=== PATIENT | female | born 1945 | race Caucasian/White ===

== ENCOUNTER 2016-02-26 22:13 | Inpatient (IN) | payer OTHER, MEDICARE ==
[~2016-02-26] VITALS: Ht 167.6 cm; Wt 68.9 kg
[~2016-02-26 22:13] MED LIST: ANTIVERT 12.512.5 MG PO; ASPIRIN EC81 M1 PO; CALCIUM 600 +1 EA12 PO; ESTRING0.0075 MG/ VG; GLUCOSAMINE &1 EACH PO; KRILL OIL500 MG PO; LEVOTHYROXINE88 MCG PO; LISINOPRIL40 M1 PO; MAGNESIUM CITR100 M1 PO; MAGNESIUM200 MG PO; MULTIPLE VITAM1 EAC2 PO; NORVASC5 M1 PO; PROBIOTIC FORM1 EACH PO; TUMERIC PO; VITAMIN D32000 I1 PO; VITAMIN D32000 UNI1 PO
[2016-02-26] MEDS ORDERED: ESTRING1 EACH VG (22:54)
[2016-02-26] MEDS ORDERED: TURMERIC500 M1 PO (22:55)
--- NOTE | 2016-02-26 23:23 | ED CARDIAC/CP/PALPITATIONS ---
History of Present Illness General Chief Complaint: Upper Respiratory Sx/Fever Stated Complaint: URI SYMPTOMS AND HEART RACING Source: patient, old records Exam Limitations: no limitations Vital Signs & Intake/Output Vital Signs & Intake/Output ED Intake and Output 02/28 0000 02/27 1200 Intake Total 60 Output Total Balance 60 Intake, Oral 60 Allergies Coded Allergies: NO KNOWN ALLERGIES (01/07/15) Reconcile Medications Amlodipine (Norvasc 5MG Tab) 5 MG TABLET 1 TAB PO DAILY BP (Reported) Aspirin (Ecotrin) 81 MG TABLET.DR 2 TAB PO DAILY HEART HEALTH (Reported) CALCIUM CARBONATE/VITAMIN D3 (Calcium 600 + Vit D Tablet) 600 MG/400 IU TAB 2 TAB PO DAILY SUPPLEMENT (Reported) Cholecalciferol (Vitamin D3) 1,000 IU TAB 2 TAB PO QPM SUPPLEMENT (Reported) Chondroitin Sulf/Glucosamine (Glucosamine & Chondroitin) 1 CAP CAP 2 CAP PO DAILY SUPPLEMENT (Reported) Estradiol (Estring) 7.5 MCG/24 HOUR VAG.RING 1 EACH VG Q3M HRT (Reported) Krill Oil ([employer] Krill Oil) (Unknown Strength) SGL (Unknown Dose) PO QPM SUPPLEMENT (Reported) Lactobacillus Acidophilus (Probiotic Formula Capsule) 10B CELL CAPSULE 1 CAP PO QPM SUPPLEMENT (Reported) Levothyroxine Sodium 0.088 MG TAB 1 TAB PO DAILY AC THYROID (Reported) Lisinopril 40 MG TABLET 1 TAB PO DAILY BP (Reported) Magnesium (Magnesium Citrate) 100 MG TAB 800 MG PO DAILY SUPPLEMENT (Reported ) Multivitamin (Multiple Vitamins) 1 EACH TABLET 2 TAB PO QPM SUPPLEMENT ( Reported) [TUMERIC] (Unknown Strength) (Unknown Dose) PO DAILY SUPPLEMENT (Reported) Turmeric Root Extract (Turmeric) (Unknown Strength) CAPSULE (Unknown Dose) PO QPM SUPPLEMENT (Reported) Triage Note: TRIAGE; PT TO ED WITH URI SYMPTOMS SINCE THURSDAY. STATES TODAY SHE DEVELOPED A COUGH. USED A COUGH DROP AND EARLIER WAS WATCHING TV GETTING READY TO GO TO BED AND FELT LIKE HER HEART WAS RACING. PT STATES SHE HAS A HX OF HYPOTHROIDSIM AND HTN, DENIES TAKING ANY COLD MEDICINE. TAKEN TO EKG [facility]. Triage Nurses Notes Reviewed? yes Onset: Abrupt Duration: hour(s):, constant, continues in ED Activities at Onset: rest HPI: Patient presents for evaluation of an irregular and rapid heartbeat that began earlier this evening. She states she has had some mild cold symptoms including fever since Thursday. She has had chest pain only with coughing. Earlier this evening however she states she had an onset of a rapid irregular heartbeat. She has had intermittent episodes of palpitations in the past that of spontaneously resolved. She has never required care for these episodes. Past History Travel History Traveled to [place] past 21 day No Medical History Any Pertinent Medical History? see below for history Cardiovascular: hypertension Endocrine: hypothyroidism Cancer(s): basal cell carcinoma Surgical History Surgical History: non-contributory Psychosocial History What is your primary language Botswanan Tobacco Use: Never used Family History Hx Contributory? No Review of Systems Review of Systems Constitutional: Reports: no symptoms. EENTM: Reports: no symptoms. Respiratory: Reports: no symptoms. Cardiovascular: Reports: see HPI. GI: Reports: no symptoms. Genitourinary: Reports: no symptoms. Musculoskeletal: Reports: no symptoms. Skin: Reports: no symptoms. Neurological/Psychological: Reports: no symptoms. Hematologic/Endocrine: Reports: no symptoms. Immunologic/Allergic: Reports: no symptoms. All Other Systems: Reviewed and Negative Physical Exam Physical Exam Cardiovascular: SEE BELOW Comments: Gen.: Well-nourished, well-developed, no acute respiratory distress. Head: Normocephalic, atraumatic. Eyes: Normal inspection bilaterally Ears: Normal inspection bilaterally Nose: Normal inspection Throat/mouth : Moist mucosa Neck: Supple, full range of motion, no goiter Heart: IRRegular rate and rhythm, no murmurs rubs or gallops Lungs: Clear to auscultation bilaterally with normal air entry Chest: Nontender Back: Normal range of motion Abdomen: Soft, nontender, nondistended, normal bowel sounds Extremities: Normal range of motion grossly, equal radial pulses, no cyanosis clubbing or edema Neurologic: Cranial nerves grossly intact, speech is clear Skin: warm and dry Psychiatric: Calm, cooperative, no apparent delusions or hallucinations Core Measures ACS in differential dx? No Severe Sepsis Present: No Septic Shock Present: No Progress Differential Diagnosis: AMI, atrial fibrillation, unstable angina, ELECTROLYTE ABNORMALITY, HYPER THYROIDISM Plan of Care: Orders Procedure Date/time Status Telemetry/Top Hat Body Maker 02/25 2353 Active THYROID STIMULATING HORMONE 02/25 2317 Complete TROPONIN LEVEL 02/25 2317 Complete T3 UPTAKE (THYROXINE BIND CAP) 02/25 2317 Complete THYROXINE 02/25 2317 Complete PARTIAL THROMBOPLASTIN TIME 02/25 2317 Complete PROTHROMBIN TIME 02/25 2317 Complete MAGNESIUM 02/25 2317 Complete CBC WITHOUT DIFFERENTIAL 02/25 2317 Complete BASIC METABOLIC PANEL 02/25 2317 Complete EKG 02/25 2218 Active Current Medications Sig/Tsella Start time Last Medication Dose Stop Time Status Admin Sodium Chloride 500 ML BOLUS ONE 02/26 0215 UNVr (Normal Saline 0.9%) 02/264 Diltiazem HCl 125 MG Q12H 02/26 020 UNVr (Cardizem DRIP) Dextrose/Water 100 ML (D5W) Laboratory Tests 02/26/162331: Anion Gap 14, Estimated GFR > 60, BUN/Creatinine Ratio 32.0 H, Glucose 105 H, Calcium 10.9 H, Magnesium 1.9, Troponin I 0.08, TSH 2.340, Thyroxine (T4) 11.6 H, Thyroxine Binding Indx 31.5, PT 12.9 H, INR 1.23 H, APTT 30, CBC w Diff NO MAN DIFF REQ, RBC 4.78, MCV 92.2, MCH 30.8, RDW 13.3, MPV 10.2, Gran % 48.9, Lymphocytes % 27.5, Monocytes % 8.8, Eosinophils % 14.4 H, Basophils % 0.4, Absolute Granulocytes 3.0, Absolute Lymphocytes 1.7, Absolute Monocytes 0.5, Absolute Eosinophils 0.9, Absolute Basophils 0, PUBS MCHC 33.4 Diagnostic Imaging: Discussed w/RAD: Radiology Read. CXR Impression: PATIENT: RYLIE ADHIKARI PRESENT AGE: 70 PATIENT ACCOUNT NO: [id number] : 44 LOCATION: [facility] ORDERING PHYSICIAN: TOBIN GONZÁLES MD SERVICE DATE: 02/26/16 EXAM TYPE: RAD - XRY-PORTABLE CHEST XRAY EXAMINATION: XR PORTABLE CHEST CLINICAL INFORMATION: Atrial fibrillation. COMPARISON: None. TECHNIQUE: Portable view of the chest was obtained. 11:24 PM FINDINGS: No significant abnormality is noted involving the heart, lungs, mediastinum, bony thorax or soft tissues. IMPRESSION: No acute change of chest. DICTATED BY: JAIMIE CHEATHAM MD DATE/TIME DICTATED:02/26/162341 CONTRACTS ADMINISTRATOR:SARAHI DATE/TIME TRANSCRIBED:02/26/162341 CONFIDENTIAL, DO NOT COPY WITHOUT APPROPRIATE AUTHORIZATION. <Electronically signed in Other Vendor System> SIGNED BY: JAIMIE CHEATHAM MD 02/26/16 4612 Initial ED EKG: rate (138), RAPID ATRIAL FIBRILLATION/FLUTTER Prior EKG: changed (NSR ON PRIOR) Rhythm Strip: atrial fibrillation, atrial flutter Comments: 02/26/2016 11:53:29 PM I have updated more on her test results. Her heart rate is now in the 70s to 80s with underlying atrial fibrillation and flutter. Patient's case discussed with Dr. Benitez. He feels the patient does not require anticoagulation at this point given the short duration of her symptoms. Departure Departure Disposition: STILL A PATIENT Condition: Stable Clinical Impression Primary Impression: Atrial fibrillation and flutter Referrals: NEIL BENÍTEZ,ANGELLA Butterfield (PCP/Family) Departure Forms: Customer Survey General Discharge Information Admission Note Spoke With: PB BENITEZ MD Documentation of Exam: Documentation of any treatments & extenuating circumstances including Concerns Regarding Discharge (functional status, medication knowledge or non-compliance, living conditions, etc.) that warrant an admission rather than observation: Patient is experiencing a persistent case of atrial fibrillation/flutter. She denies any prior history of the same. 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 Her atrial fibrillation places her at high risk of rapid ventricular response with associated hypotension and chest pain. Atrial fibrillation also places the patient at high risk of cardio embolism with resulting CVA. He now requires continuous cardiac monitoring and an IV Cardizem drip to control heart rate. She should also have serial troponin determinations for the possibility of cardiac injury. Rate controlling oral medications and anticoagulation might be necessary if patient does not convert within the first 24 hours of symptom onset. I feel the patient will require a multiple day hospitalization. Critical Care Note Critical Care Note Critical Care Time: 30-74 min Critical Care Note Critical Care Note Critical Care Time: 30-74 min
--- NOTE | 2016-02-26 23:46 | RADIOLOGY REPORT ---
EXAMINATION: XR PORTABLE CHEST CLINICAL INFORMATION: Atrial fibrillation. COMPARISON: None. TECHNIQUE: Portable view of the chest was obtained. 11:24 PM FINDINGS: No significant abnormality is noted involving the heart, lungs, mediastinum, bony thorax or soft tissues. IMPRESSION: No acute change of chest.
[2016-02-26 23:49] LABS: PT 12.9 SEC (9.4-12.5); PTT 30 SEC (25-37)
[2016-02-26 23:51] LABS: ABSOLUTE BASOPHIL COUNT 0 /CUMM (0.0-0.2); ABSOLUTE EOSINOPHIL COUNT 0.9 /CUMM (0.0-0.7); ABSOLUTE LYMPH COUNT 1.7 /CUMM (1.2-3.4); ABSOLUTE MONOCYTE COUNT 0.5 /CUMM (0.10-0.60); BASOPHIL % 0.4 % (0.0-2.0); EOSINOPHIL % 14.4 % (0-5); GRANULOCYTE % 48.9 % (42.2-75.2); MEAN CORPUSCULAR HGB 30.8 PG (27.0-31.0); MEAN CORPUSCULAR HGB CONC 33.4 G/DL (33.0-37.0); MEAN CORPUSCULAR VOLUME 92.2 FL (81.0-99.0); MEAN PLATELET VOLUME 10.2 FL (7.4-10.4); PLATELET COUNT 180 /CUMM (130-400); RBC DISTRIBUTION WIDTH 13.3 % (11.5-14.5); RED BLOOD CELL CT 4.78 /CUMM (4.20-5.40); WHITE BLOOD CELL COUNT 6.1 /CUMM (4.8-10.8)
--- NOTE | 2016-02-27 03:10 | History & Physical ---
DANIA MONTEIRO 02/27/16 0309: General Information and HPI MD Statement: I have seen and personally examined HARRIETT BOYD and documented this H&P. The patient is a 70 year old F who presented with a patient stated chief complaint of [Irregular heart beats]. Source of Information: patient, old records Exam Limitations: no limitations History of Present Illness: This is 70-year-old female with past medical history of hypertension, hypothyroidism, basal cell carcinoma. Presented to the emergency department with a chief complaint of irregular and rapid heartbeat that started early this evening around 8 PM. Patient stated that she had some previous history of heart racing and she was evaluated by regional vice president surgical sales in 2007 after being referred by her engraver seals and she was a cleared. Patient stated that last Thursday she started to have some cough, associated with nasal congestions and runny nose, sneezing, patient reports sick contact, she stated that it was common cold. She reports some chest pain below the rib and she linked that to the cough, nonradiating, increased with cough decreased with rest. She denies any fever, chills, shortness of breath, chest discomfort, chest tightness, dizziness, lightheaded, abdominal pain, nausea, vomiting, diarrhea, change in vision or hearing, headache, dysuria, hematuria. She also reports a constipation. Patient stated that she was recently started on vitamin D and calcium supplement per her engraver seals she has a follow-up appointment with him.. Emergency department patient found to have rapid atrial fibrillation with a heart rate in the 140s, she received 10 mg of IV Cardizem and was started on Cardizem elliot, Ismael Cook MD cussed the case with Dr. Miramontes advice no anticoagulation for now and he'll see the patient in morning and will decide. Allergies/Medications Allergies: Coded Allergies: NO KNOWN ALLERGIES (01/07/15) Home Med list Amlodipine (Norvasc 5MG Tab) 5 MG TABLET 1 TAB PO DAILY BP (Reported) Aspirin (Ecotrin) 81 MG TABLET.DR 2 TAB PO DAILY HEART HEALTH (Reported) CALCIUM CARBONATE/VITAMIN D3 (Calcium 600 + Vit D Tablet) 600 MG/400 IU TAB 2 TAB PO DAILY SUPPLEMENT (Reported) Cholecalciferol (Vitamin D3) 1,000 IU TAB 2 TAB PO QPM SUPPLEMENT (Reported) Chondroitin Sulf/Glucosamine (Glucosamine & Chondroitin) 1 CAP CAP 2 CAP PO DAILY SUPPLEMENT (Reported) Estradiol (Estring) 7.5 MCG/24 HOUR VAG.RING 1 EACH VG Q3M HRT (Reported) Krill Oil ([employer] Krill Oil) (Unknown Strength) SGL (Unknown Dose) PO QPM SUPPLEMENT (Reported) Lactobacillus Acidophilus (Probiotic Formula Capsule) 10B CELL CAPSULE 1 CAP PO QPM SUPPLEMENT (Reported) Levothyroxine Sodium 0.088 MG TAB 1 TAB PO DAILY AC THYROID (Reported) Lisinopril 40 MG TABLET 1 TAB PO DAILY BP (Reported) Magnesium (Magnesium Citrate) 100 MG TAB 800 MG PO DAILY SUPPLEMENT (Reported ) Multivitamin (Multiple Vitamins) 1 EACH TABLET 2 TAB PO QPM SUPPLEMENT ( Reported) [TUMERIC] (Unknown Strength) (Unknown Dose) PO DAILY SUPPLEMENT (Reported) Turmeric Root Extract (Turmeric) (Unknown Strength) CAPSULE (Unknown Dose) PO QPM SUPPLEMENT (Reported) Past History Travel History Traveled to [place] past 21 day No Medical History Cardiovascular: hypertension Endocrine: hypothyroidism Cancer(s): basal cell carcinoma Surgical History Surgical History: non-contributory Past Family/Social History Family History Relations & Conditions if any FATHER (Heart attack at 64). . MOTHER (Dementia). . Psychosocial History Smoking Status: Never Smoked ETOH Use: wine daily Functional Ability ADLs Independent: dressing, eating, toileting, bathing. Ambulation: independent IADLs Independent: shopping, housework, finances, food prep, telephone, transportation , medication admin. Review of Systems Review of Systems Constitutional: Reports: see HPI. Cardiovascular: Reports: see HPI. Respiratory: Reports: see HPI. GI: Reports: see HPI. Genitourinary: Reports: see HPI. Exam & Diagnostic Data Last 24 Hrs of Vital Signs/I&O Vital Signs Date Time Temp Pulse Resp B/P Pulse O2 O2 Flow FiO2 Ox Delivery Rate 02/26 0300 134 159/87 96 Room Air 02/26 0219 97.9 133 18 146/84 98 Room Air 02/25 2346 140 18 140/83 02/25 2218 97.6 122 18 122/88 97 Room Air Intake & Output 02/26 0800 02/26 0000 02/25 1600 Intake Total 0 Output Total Balance 0 Intake, Oral 0 Physical Exam General Appearance Alert, Oriented X3, Cooperative HEENT PERRLA, EOMI Neck Supple Cardiovascular Normal S1, Normal S2, irregular irregular, tachycardia Lungs Clear to Auscultation, Normal Air Movement Abdomen Normal Bowel Sounds, Soft, No Tenderness Extremities No Cyanosis, No Edema Last 24 Hrs of Labs/Richy: Laboratory Tests 02/26/16 2332: Anion Gap 14, Estimated GFR > 60, BUN/Creatinine Ratio 32.0 H, Glucose 105 H, Calcium 10.9 H, Magnesium 1.9, Troponin I 0.08, TSH 2.340, Thyroxine (T4) 11.6 H, Thyroxine Binding Indx 31.5, PT 12.9 H, INR 1.23 H, APTT 30, CBC w Diff NO MAN DIFF REQ, RBC 4.78, MCV 92.2, MCH 30.8, RDW 13.3, MPV 10.2, Gran % 48.9, Lymphocytes % 27.5, Monocytes % 8.8, Eosinophils % 14.4 H, Basophils % 0.4, Absolute Granulocytes 3.0, Absolute Lymphocytes 1.7, Absolute Monocytes 0.5, Absolute Eosinophils 0.9, Absolute Basophils 0, PUBS MCHC 33.4 02/26/16 2318: Hemoglobin A1c Pending Diagnostic Data EKG Results Atrial fibrillation, heart rate 130s, CXR Results EXAM TYPE: RAD - XRY-PORTABLE CHEST XRAY EXAMINATION: XR PORTABLE CHEST CLINICAL INFORMATION: Atrial fibrillation. COMPARISON: None. TECHNIQUE: Portable view of the chest was obtained. 11:24 PM FINDINGS: No significant abnormality is noted involving the heart, lungs, mediastinum, bony thorax or soft tissues. IMPRESSION: No acute change of chest. Assessment/Plan Assessment: This is 70-year-old female with past medical history of hypertension, hypothyroidism, basal cell carcinoma. Presented to the emergency department with a chief complaint of irregular and rapid heartbeat that started early this evening around 8 PM. Problem list: -Newly diagnosed rapid atrial fibrillation that could be due to medication versus electrolyte abnormality versus infection versus thyroid issues. -Nasal congestion, cough, runny nose most likely due to cold. -Rule out acute coronary syndrome. -Hypercalemia [id number] =3 Plan: -Admit patient to telemetry floor -Vitals every shift, I&Os -Serial troponin and EKG -IV Cardizem drip, IV fluid hydration D5 half-normal saline at 125 mL/h -We'll hold off anticoagulation as recommended by regional vice president surgical sales for now. -Check TSH, free T4, hemoglobin A1c, magnesium. -Echocardiogram in a.m. cardiology consultation. -Repeat CBC and basic electrolytes, lipid panel -Continue home medication, hold vitamin D and calcium -Heart healthy diet -Pain pathway -DVT prophylaxis: subcutaneous Lovenox -Full code As Ranked By This Provider Problem List: 1. Atrial fibrillation and flutter Core Measures/Miscellaneous Acute Coronary Syndrome ACS Diagnosis: No Cerebrovascular Accident CVA/TIA Diagnosis: No Congestive Heart Failure CHF Diagnosis: No Venous Thromboembolism VTE Risk Factors: Acute medical illness, Age > 40, Estrogen VTE Prophylaxis Ordered Inpt: Mech & Pharm No Mech VTE prophylaxis d/t: No contraindications No VTE Pharm Prophylaxis d/t: No contraindications VTE Diagnosis: No VTE Type: NONE VTE Confirmed by (Test): NONE Severe Sepsis Severe Sepsis Present: No Septic Shock Septic Shock Present: No Miscellaneous Documentation Attending Case Discussed With: Dr. Miramontes Primary Care Physician: ANGELLA TREJO MD Patient sees these Specialists Lab Specialist Level of Patient Care: Telemetry EMMANUEL BENÍTEZ,PB Cervantes 02/27/16 1043: Attending MD Review Statement Attending Statement Attending MD Statement: examined this patient, discuss w/resident/PA/DRAINMAN, agreed w/resident/PA/DRAINMAN, discussed with family, reviewed EMR data (avail), discussed with nursing, discussed with case mgmt, reviewed images, amended to note Attending Assessment/Plan: Mrs. Harriett Boyd is a 70-year-old female with a past medical of hypertension, hypothyroidism on thyroid replacement, and previous palpitations who presented from home to the ED following the sudden onset of palpitations at around 8 PM last evening (02/26/2016) and was found to be in atrial fibrillation with a rapid ventricular response. She has been suffering with upper respiratory infection symptoms since Thursday ( 02/22/2016) with a non-productive cough, sneezing, as well as, body aches and pains. She denies any fever or chills. She took no specific medications for these complaints. In the ED she was given IV diltiazem (10 mg times one) followed by an IV diltiazem drip (10 mg/hour) and converted back to sinus rhythm without any neurological sequelae. The diltiazem drip was titrated down and ultimately discontinued secondary to bradycardia. She denies any history of coronary, valvular, documented dysrhythmic/conduction disease, or cardiomyopathy. At present she is comfortable and without complaints. She specifically denies any present or previous chest discomfort, shortness of breath, orthopnea, paroxysmal nocturnal dyspnea, lower schreiber edema, dry cough, syncope, near syncope , lightheadedness, dizziness, or claudication. System review: A 14 point system review was obtained and was noncontributory other than as above, except for the fact that she wears glasses and has occasional UTIs. Past medical history: Hypertension, hypothyroidism, previous palpitations, basal cell carcinoma status post resection with Mohs procedure, previous UTIs, previous endometriosis status post laparoscopic surgery in the 1970s. Family history/social history: Never smoked, social EtOH, no illegal drug use. Father succumbed to myocardial infarction at age 64 years. Mother at age 88 years from complications of dementia. Has a sister who developed endocarditis and is status post mechanical valve replacement. Physical examination: Well-developed, well nourished elderly female in no acute distress. Vital signs: See above. HEENT: Normocephalic, atraumatic, EOMI, moist. His membranes. Neck: No JVD, no bruits. Lungs: Clear to auscultation bilaterally. Heart: S1, S2 with no murmur, gallop, or rub appreciated. PMI fifth ICS at MCL. Abdomen: Soft, nontender, positive bowel sounds. Extremities: No cyanosis, clubbing, or edema. Peripheral pulses: Symmetrical and intact. Studies: ECG (02/26/2016) atrial fibrillation with a rapid ventricular response, probable left ventricular hypertrophy with repolarization abnormalities likely rate related note rhythm change when compared to previous tracing (01/07/2015). CXR (02/26/2016) no acute process. Impression: New onset atrial fibrillation in an elderly female who may have had a paroxysm during a previous ED evaluation on 09/25/2014 without follow -up at that time. As this paroxysm of atrial fibrillation was short lived, I do not think, at this juncture, that she needs to be placed on anticoagulation or specific antiarrhythmic therapy. Would replete her potassium, magnesium, and have her engraver seals follow-up with her for her thyroid function and elevated calcium level. Would schedule her for an echocardiogram which can hopefully be performed today. Suspect that the modest bump in her troponin is on the basis of demand ischemia secondary to tachycardia and probable left ventricular hypertrophy secondary to her hypertension, but need to consider the possibility of underlying coronary artery disease, especially in light of the ST depression observed on her presenting ECG. Would also recommend outpatient risk stratification with an imaging stress test given her abnormal electrocardiogram and risk factors for coronary artery disease. Would ambulate and if she remains stable consider discharge later today for further outpatient evaluation/management. Continue DVT prophylaxis for now. Reasonable to check a glycosylated hemoglobin A1c. Further recommendations will follow.
[2016-02-27 06:14] LABS: ABSOLUTE BASOPHIL COUNT 0 /CUMM (0.0-0.2); ABSOLUTE EOSINOPHIL COUNT 0.5 /CUMM (0.0-0.7); ABSOLUTE GRANULOCYTE CT 3.8 /CUMM (1.4-6.5); ABSOLUTE LYMPH COUNT 1.5 /CUMM (1.2-3.4); ABSOLUTE MONOCYTE COUNT 0.5 /CUMM (0.10-0.60); BASOPHIL % 0.2 % (0.0-2.0); EOSINOPHIL % 7.4 % (0-5); GRANULOCYTE % 60.5 % (42.2-75.2); HEMATOCRIT 39.8 % (37-47); MEAN CORPUSCULAR HGB 31.3 PG (27.0-31.0); MEAN CORPUSCULAR HGB CONC 34.3 G/DL (33.0-37.0); MEAN PLATELET VOLUME 9.3 FL (7.4-10.4); PLATELET COUNT 200 /CUMM (130-400); RBC DISTRIBUTION WIDTH 13.2 % (11.5-14.5); RED BLOOD CELL CT 4.38 /CUMM (4.20-5.40); WHITE BLOOD CELL COUNT 6.3 /CUMM (4.8-10.8)
--- NOTE | 2016-02-27 11:14 | PN- Housestaff ---
Subjective Follow-up For: New onset atrial fibrillation Subjective: Patient was seen and examined this morning, no acute distress. She denied any chest pain, palpitation, shortness of breath, dizziness, headache, blurred vision. Overnight events reported by the patient or the nurse. Vital signs are stable with heart rate 66 and regular, temperature 129/72, respiratory rate 16 with room air saturation 95%, temperature 97.6 Review of Systems Constitutional: Denies: no symptoms. Objective Last 24 Hrs of Vital Signs/I&O Vital Signs Date Time Temp Pulse Resp B/P Pulse O2 O2 Flow FiO2 Ox Delivery Rate 02/26 1541 97.6 66 16 128/72 95 Room Air 02/26 1435 Room Air 02/26 1421 98.3 65 18 158/80 96 Room Air 02/26 1324 98.1 76 18 160/69 99 Room Air 02/26 1049 97.9 54 16 110/57 02/26 0617 54 110/57 16 02/26 0525 54 16 156/61 95 Room Air 02/26 0300 134 159/87 96 Room Air 02/26 0219 97.9 133 18 146/84 98 Room Air 02/25 2346 140 18 140/83 02/25 2218 97.6 122 18 122/88 97 Room Air Intake & Output 02/26 1600 02/26 0800 02/26 0000 Intake Total 375 0 Output Total Balance 375 0 Intake, IV 135 Intake, Oral 240 0 Number 1 Bowel Movements Patient 68.946 kg Weight Physical Exam General Appearance: Alert, Oriented X3, Cooperative, No Acute Distress Skin: No Rashes, No Breakdown, No Significant Lesion HEENT: Atraumatic, PERRLA, EOMI, Mucous Membr. moist/pink Neck: Supple, No JVD Cardiovascular: Regular Rate, Normal S1, Normal S2, No Murmurs Lungs: Clear to Auscultation, Normal Air Movement Abdomen: Normal Bowel Sounds, Soft, No Tenderness Neurological: Normal Gait, Normal Speech, Strength at 5/5 X4 Ext, Normal Tone, Sensation Intact, Cranial Nerves 3-12 NL, Reflexes 2+ Extremities: No Clubbing, No Cyanosis, No Edema, Normal Pulses Assessment/Plan Assessment: This is 70-year-old female with past medical history of hypertension, hypothyroidism, basal cell carcinoma. She was admitted overnight with chief complaint of irregular rapid heartbeat that started early yesterday evening. 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 Miramontes doesn't recommend starting anticoagulation with heparin given that the patient has no risk factors and the rate is well-controlled -Patient reported recent history of flu with cough, congested nose since Thursday, viral illness could participate in new onset of atrial fibrillation -Patient has history of hypothyroidism, was questioned if she had any recent changes in Synthroid dose or if she got 2 doses by mistake but she denied any of these possibilities. -On admission troponin is 0.08, following troponin 0.12, start to trend down to 0.09. -Lipid profile HDL 83, HDL 69, triglycerides 52, total cholesterol 162 -Cardiology Dr. Miramontes is on board #Hypertension -Continue home medication amlodipine and lisnopril #Hypothyroidism -Continue Synthroid 88 g by mouth daily -TSH 2.34, free T4 1.31 -Discontinue vitamin D with calcium, patient has on admission hypercalcemia 10.9 DVT prophylaxis Lovenox Diet heart healthy diet Code full Problem List: 1. Atrial fibrillation and flutter Pain Ratin Pain Location: n/a Pain Goal: Remain pain free Pain Plan: see mediaction Tomorrow's Labs & Rationales: cbc, cmp
--- NOTE | 2016-02-27 13:30 | Event Note ---
Event Note Event Note: Situation: * resolution of tachyarrhythmia Brief: * The Cardizem drip was started some time after 0400hrs @ 10mg/hr for new onset Afib w/ RVR * On assessement of her rhythm on ED monitor around 0500hrs she was bradycardic into the 40's. SBP at the time 150's. PT was asymptomatic at this time, denies any palpitations, CP, dizziness, GARCIA, difficulty speaking or new numbness/ weakness in any extremitis * I titrated had the ED staff titrate the drip down by 2.5mg intervals while watching for rrecurrence of RVR and ordered a repeat EKG * Of note, the patient did mention that her baseline HR is in the 40's while at rest A/P: * Follow up EKG to assess rhythm (Afib vs NSR) * Will update Dr Miramontes on repeat troponin levels and discuss the need for anticoagulation
--- NOTE | 2016-02-27 13:57 | Patient Discharge Instructions ---
Discharge Instructions General Discharge Information You were seen/treated for: - PAROXYSMAL ATRIAL FIBRILLATION Watch for these problems: RAPID HEART BEAT CHEST PAIN SHORTNESS OF BREATHE Special Instructions: ENSURE FOLLOW UP APPOINTMENT WITH DR. PB BENITEZ (CARDIOLOGY) Diet Recommended Diet: Regular Activity Activity Self Limited: Yes Acute Coronary Syndrome Inclusion Criteria At DC or during hospital stay patient has or had the following: ACS DIAGNOSIS No Discharge Core Measures Meds if any: Prescribed or Continued at Discharge Meds if any: NOT Prescribed or Continued at Discharge Comment TACHYCARDIA INDUCED,DEMAND Congestive Heart Failure Inclusion Criteria At DC or during hospital stay patient has or had the following: CHF DIAGNOSIS No Discharge Core Measures Meds if any: Prescribed or Continued at Discharge Meds if any: NOT Prescribed or Continued at Discharge Cerebrovascular accident Inclusion Criteria At DC or during hospital stay patient has or had the following: CVA/TIA Diagnosis No Discharge Core Measures Meds if any: Prescribed or Continued at Discharge Meds if any: NOT Prescribed or Continued at Discharge Venous thromboembolism Inclusion Criteria VTE Diagnosis No VTE Type NONE VTE Confirmed by (Test) NONE Discharge Core Measures - Per Current guidelines, there needs to be overlap - treatment for the first 5 days of Warfarin therapy. - If discharged on Warfarin prior to 5 days of - overlap therapy, the patient will need to be - assessed for post discharge needs including - *Post discharge parental anticoagulation - *Warfarin and/or parental anticoagulation education - *Follow up date to check INR post discharge At least 5 days overlap therapy as Inpatient No Meds if any: Prescribed or Continued at Discharge Note: Overlap Therapy is Warfarin and Anticoagulant Meds if any: NOT Prescribed or Continued at Discharge
[2016-02-27 14:21] VITALS: BP 158/80
[2016-02-27 15:41] VITALS: BP 128/72
[2016-02-28 01:12] VITALS: BP 130/67
[2016-02-28 07:40] LABS: ABSOLUTE BASOPHIL COUNT 0 /CUMM (0.0-0.2); ABSOLUTE EOSINOPHIL COUNT 0.9 /CUMM (0.0-0.7); ABSOLUTE GRANULOCYTE CT 1.6 /CUMM (1.4-6.5); ABSOLUTE MONOCYTE COUNT 0.5 /CUMM (0.10-0.60); BASOPHIL % 0.4 % (0.0-2.0); EOSINOPHIL % 17.4 % (0-5); GRANULOCYTE % 31.6 % (42.2-75.2); HEMATOCRIT 37.4 % (37-47); MEAN CORPUSCULAR HGB 31.3 PG (27.0-31.0); MEAN CORPUSCULAR VOLUME 91.9 FL (81.0-99.0); MEAN PLATELET VOLUME 9.7 FL (7.4-10.4); PLATELET COUNT 173 /CUMM (130-400); RBC DISTRIBUTION WIDTH 13.3 % (11.5-14.5); RED BLOOD CELL CT 4.07 /CUMM (4.20-5.40)
[2016-02-28 08:00] VITALS: BP 122/68
[2016-02-28 09:11] VITALS: BP 140/66
--- NOTE | 2016-02-28 11:06 | PN- Housestaff ---
Subjective Follow-up For: New onset paroxysmal atrial fibrillation Tele-Events Since Last Visit: SR rate 50-60 no events Subjective: patient was seen and examined this mornig, no acute distress, viatls are stable, sinus rythum with rate 50bpm, no complait. on overight events reported by the patient or the nurse. Review of Systems Constitutional: Denies: no symptoms. Objective Last 24 Hrs of Vital Signs/I&O Vital Signs Date Time Temp Pulse Resp B/P Pulse O2 O2 Flow FiO2 Ox Delivery Rate 02/27 0911 140/66 02/27 08 97.5 50 20 122/68 93 Room Air 02/27 0112 97.9 56 20 130/67 94 Intake & Output 02/27 1600 02/27 0800 02/27 0000 Intake Total 60 250 Output Total Balance 60 250 Intake, Oral 60 250 Physical Exam General Appearance: Alert, Oriented X3, Cooperative, No Acute Distress Skin: No Rashes, No Breakdown, No Significant Lesion HEENT: Atraumatic, PERRLA, EOMI, Mucous Membr. moist/pink Neck: Supple, No JVD Cardiovascular: Regular Rate, Normal S1, Normal S2, No Murmurs Lungs: Clear to Auscultation, Normal Air Movement Abdomen: Normal Bowel Sounds, Soft, No Tenderness Neurological: Normal Gait, Normal Speech, Strength at 5/5 X4 Ext, Normal Tone, Sensation Intact, Cranial Nerves 3-12 NL, Reflexes 2+ Extremities: No Clubbing, No Cyanosis, No Edema, Normal Pulses Assessment/Plan Assessment: This is 70-year-old female with past medical history of hypertension, hypothyroidism, basal cell carcinoma. She was admitted overnight with chief complaint of irregular rapid heartbeat. 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 Miramontes doesn't recommend starting anticoagulation with heparin given that the patient has no risk factors and the rate is well-controlled -Patient reported recent history of flu with cough, congested nose since Thursday, viral illness could participate in new onset of atrial fibrillation -Patient has history of hypothyroidism, was questioned if she had any recent changes in Synthroid dose or if she took 2 doses by mistake but she denied any of these possibilities. -On admission troponin is 0.08, following troponin 0.12, start to trend down to 0.09. -Lipid profile HDL 83, HDL 69, triglycerides 52, total cholesterol 162 -Cardiology Dr. Miramontes is on board -Echo was obtaied yesterday -Patient will be discharged today, supposed to be DC since yesterday but had her echo done late yesterday. Discussed the DC plan with the resident who spoke with Dr. Miramontes yesterday about the DC plan. Patiet was given (up to date basic information about atrial fibrilation). #Hypertension -Continue home medication amlodipine and lisnopril #Hypothyroidism -Continue Synthroid 88 g by mouth daily -TSH 2.34, free T4 1.31 -Discontinue vitamin D with calcium, patient has on admission hypercalcemia 10.9 DVT prophylaxis Lovenox Diet heart healthy diet Code full Problem List: 1. AF (paroxysmal atrial fibrillation) 2. Hypertension 3. Hypothyroid Pain Ratin Pain Location: n/a Pain Goal: Remain pain free Pain Plan: as needed Tomorrow's Labs & Rationales: none
--- NOTE | 2016-02-28 11:55 | Discharge Summary ---
Visit Information Visit Dates Admission Date: 02/27/16 Discharge Date: 02/28/16 Hospital Course Course Attending Physician: EMMANUEL BENÍTEZ,PB Cervantes Primary Care Physician: NEIL BENÍTEZ,ANGELLA [facility] Hospital Course: This is 70-year-old female with past medical history of hypertension, hypothyroidism, basal cell carcinoma. She was admitted with chief complaint of irregular rapid heartbeat. 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 Benitez did not recommend starting anticoagulation with heparin given that the patient has no risk factors and the rate is well- controlled -Patient reported recent history of flu with cough, congested nose . Viral illness could participate in new onset of atrial fibrillation -Patient has history of hypothyroidism, was questioned if she had any recent changes in Synthroid dose or if she took 2 doses by mistake but she denied any of these possibilities. -On admission troponin is 0.08, following troponin 0.12, trend down to 0.09. -Lipid profile HDL 83, HDL 69, triglycerides 52, total cholesterol 162 -Echo was obtaied Normal size left ventricle. Borderline to mild concentric left ventricular hypertrophy. Normal left ventricular ejection fraction visually estimated at > 65%. Normal left ventricular diastolic filling pattern for age. Mild right ventricular dilatation. Normal right atrial size. Left atrial size at the upper limits of normal. Mild mitral regurgitation. Mild tricuspid regurgitation. Right ventricular systolic pressure estimated at 32 mmHg. Mild pulmonic regurgitation. #Hypertension -Continue home medication amlodipine 5 mg daily and lisnopril 40 mg daily #Hypothyroidism -Continue Synthroid 88 g by mouth daily -TSH 2.34, free T4 1.31 DVT prophylaxis Lovenox Diet heart healthy diet Code full Allergies: Coded Allergies: NO KNOWN ALLERGIES (03/02/16) Disposition Summary Disposition Principal Diagnosis: New onset of paroxysmal atrial fibrillation Additional Diagnosis: Hypertension Discharge Disposition: home or self care Discharge Instructions General Discharge Information Code Status: Full Code Patient's Diet: heart heathly diet Patient's Activity: as tolerated Follow-Up Instructions/Appts: ENSURE FOLLOW UP APPOINTMENT WITH DR. PB BENITEZ (CARDIOLOGY) Medications at Discharge Discharge Medications: Continue taking these medications: Lisinopril (Lisinopril) 40 MG TABLET 1 Tablet ORAL DAILY Qty = 90 Comments: PER PT Amlodipine (Norvasc 5MG Tab) 5 MG TABLET 1 Tablet ORAL DAILY Qty = 90 Comments: PER PT Levothyroxine Sodium (Levothyroxine Sodium) 0.088 MG TAB 1 Tablet ORAL DAILY BEFORE BREAKFAST Qty = 90 Comments: PER PT Aspirin (Ecotrin) 81 MG TABLET.DR 2 Tablet ORAL DAILY Comments: PER PT TAKES QPM Chondroitin Sulf/Glucosamine (Glucosamine & Chondroitin) 1 CAP CAP 2 Capsule ORAL DAILY Comments: PER PT TAKES QPM [TUMERIC] (Unknown Strength) Unknown Dose ORAL DAILY Comments: PER PT QPM Magnesium (Magnesium Citrate) 100 MG TAB 800 Milligram ORAL DAILY Comments: PER PT TAKES QPM Cholecalciferol (Vitamin D3) 1,000 IU TAB 2 Tablet ORAL Every night Comments: PER PT QPM CALCIUM CARBONATE/VITAMIN D3 (Calcium 600 + Vit D Tablet) 600 MG/400 IU TAB 2 Tablet ORAL DAILY Comments: PER PT QPM Lactobacillus Acidophilus (Probiotic Formula Capsule) 10B CELL CAPSULE 1 Capsule ORAL Every night Comments: PER PT QPM Krill Oil ([employer] Krill Oil) (Unknown Strength) SGL Unknown Dose ORAL Every night Comments: PER PT QPM Multivitamin (Multiple Vitamins) 1 EACH TABLET 2 Tablet ORAL Every night Comments: PER PT Estradiol (Estring) 7.5 MCG/24 HOUR VAG.RING 1 Each VAGINAL Every 3 months Comments: PER PT JAN 2016 Turmeric Root Extract (Turmeric) (Unknown Strength) CAPSULE Unknown Dose ORAL Every night Comments: PER PT Copies To: NEIL BENÍTEZ,ANGELLA [place]; EMMANUEL BENÍTEZ,PB Cervantes
--- NOTE | 2016-02-28 15:28 | ECHOCARDIOGRAM REPORT ---
RYLIE ADHIKARI Age: 70 : 1945 Gender: F Exam Date: 02/27/2016 20:02 Exam Location: [place] Ht (in): 66 Wt (lb): 152 BSA: 1.80 BP: 18 / 72 Ordering Physician: DAVID NG MD Referring Physician: Maurice Miramontes MD Technologist: Melly Donovan [facility] Room Number: 180-02 Indications: AFIB/FLUTTER Rhythm: Sinus Technical Quality: Fair FINDINGS Left Ventricle Normal size left ventricle. Borderline to mild concentric left ventricular hypertrophy. No obvious regional wall motion abnormalities. Normal left ventricular ejection fraction visually estimated at > 65%. Normal left ventricular diastolic filling pattern for age. Right Ventricle Mild right ventricular dilatation. Right Atrium Normal right atrial size. Left Atrium Left atrial size at the upper limits of normal. Mitral Valve Mitral valve mildly thickened. Mild mitral regurgitation. Aortic Valve Trileaflet aortic valve. Mild aortic sclerosis. No aortic valve stenosis or regurgitation. Tricuspid Valve Structurally normal tricuspid valve. Mild tricuspid regurgitation. Right ventricular systolic pressure estimated at 32 mmHg. Pulmonic Valve Pulmonic valve not well visualized. Mild pulmonic regurgitation. Pericardium No pericardial effusion. Great Vessels Normal size aortic root. Normal size inferior vena cava. CONCLUSIONS Normal size left ventricle. Borderline to mild concentric left ventricular hypertrophy. Normal left ventricular ejection fraction visually estimated at > 65%. Normal left ventricular diastolic filling pattern for age. Mild right ventricular dilatation. Normal right atrial size. Left atrial size at the upper limits of normal. Mild mitral regurgitation. Mild tricuspid regurgitation. Right ventricular systolic pressure estimated at 32 mmHg. Mild pulmonic regurgitation. Maurice Miramontes M.D. (Electronically Signed) Final Date: 28 February 2016 15:28 MEASUREMENTS (Male / Female) Normal Values 2D ECHO LV Diastolic Diameter PLAX 4.8 cm 4.2 - 5.9 / 3.9 - 5.3 cm LV Systolic Diameter PLAX 3.0 cm 2.1 - 4.0 cm LV Fractional Shortening PLAX 37.5 % 25 - 46 % LV Ejection Fraction 2D Teich 67.4 % IVS Diastolic Thickness 0.8 cm LVPW Diastolic Thickness 1.0 cm LV Relative Wall Thickness 0.4 RV Internal Dim ED PLAX 3.5 cm 1.9 - 3.8 cm LVOT Diameter 1.9 cm Aortic Root Diameter 2.6 cm LA Systolic Diameter LX 3.9 cm 3.0 - 4.0 / 2.7 - 3.8 cm LA Volume 42.0 cm 18 - 58 / 22 - 52 cm Ascending Aorta Diameter 3.1 cm DOPPLER AV Peak Velocity 136.0 cm/s AV Peak Gradient 7.4 mmHg AV Mean Velocity 101.0 cm/s AV Mean Gradient 4.0 mmHg AV Velocity Time Integral 31.7 cm LVOT Peak Velocity 89.7 cm/s LVOT Peak Gradient 3.2 mmHg LVOT Mean Velocity 54.8 cm/s LVOT Mean Gradient 1.0 mmHg LVOT Velocity Time Integral 20.1 cm LVOT Stroke Volume 57.0 cm AV Area Cont Eq vti 1.8 cm AV Area Cont Eq pk 1.9 cm MV Peak Velocity 66.2 cm/s MV Peak Gradient 1.8 mmHg MV Mean Velocity 44.3 cm/s MV Mean Gradient 1.0 mmHg Mitral E Point Velocity 61.4 cm/s Mitral A Point Velocity 55.5 cm/s Mitral E to A Ratio 1.1 MV PHT Velocity 67.9 cm/s MV Deceleration [place] 192.0 cm/s MV Pressure Half Time 106.1 ms MV Area PHT 2.1 cm MV Deceleration Time 180.0 ms TR Peak Velocity 259.0 cm/s TR Peak Gradient 26.8 mmHg Right Atrial Pressure 5.0 mmHg Pulmonary Artery Systolic Pressu 31.8 mmHg Right Ventricular Systolic Press 31.8 mmHg PV Peak Velocity 78.6 cm/s PV Peak Gradient 2.5 mmHg PV Mean Velocity 49.7 cm/s PV Mean Gradient 1.0 mmHg PV Velocity Time Integral 15.5 cm LV E' Lateral Velocity 7.8 cm/s Mitral E to LV E' Lateral Ratio 7.9 LV E' Septal Velocity 3.9 cm/s Mitral E to LV E' Septal Ratio 15.7
== END 2016-02-28 09:55 | DRG 309 ==
LOC: ENRESERVDT → ENRESERVTM → ERH 22:13 → ERHI 02-27 02:13 → ENPENDDIS 02-27 02:13 → ERHI 02-27 13:42 → 1NO 02-27 13:42 → ERHI 02-27 13:47 → 1NO 02-27 14:11
PROVIDERS: Emergency Medicine; Internal Medicine Hematology & Oncology; Student in an Organized Health Care Education/Training Program; ADMIT Internal Medicine Interventional Cardiology
DX: I48.0 Paroxysmal atrial fibrillation (principal); I24.8 Other forms of acute ischemic heart disease; I48.92 Unspecified atrial flutter; I10 Essential (primary) hypertension; E03.9 Hypothyroidism, unspecified; E83.52 Hypercalcemia; I51.7 Cardiomegaly
CPT/HCPCS: 1NSP; 36415; 82436; 93005; 93010; 93306; 96374; J1650

== ENCOUNTER 2016-03-02 18:58 | Emergency (ER) | payer OTHER, MEDICARE ==
[~2016-03-02] VITALS: Ht 167.6 cm; Wt 68.0 kg
[~2016-03-02 18:58] MED LIST changes: +ESTRING1 EACH VG; +TURMERIC500 M1 PO
--- NOTE | 2016-03-02 19:37 | ED CARDIAC/CP/PALPITATIONS ---
History of Present Illness General Chief Complaint: General Adult Stated Complaint: HEART PALPITATIONS H/X OF AFIB Source: patient, old records Exam Limitations: no limitations Vital Signs & Intake/Output Vital Signs & Intake/Output Vital Signs Date Time Temp Pulse Resp B/P Pulse O2 O2 Flow FiO2 Ox Delivery Rate 03/03 0119 97.9 55 18 169/74 97 Room Air 03/02 2225 98.2 51 18 135/61 98 Room Air 03/02 2013 Room Air 03/02 1909 97.8 67 20 186/93 98 Room Air ED Intake and Output 03/03 0000 03/02 1200 Intake Total Output Total Balance Patient 150 lb Weight Allergies Coded Allergies: NO KNOWN ALLERGIES (03/02/16) Reconcile Medications Amlodipine (Norvasc 5MG Tab) 5 MG TABLET 1 TAB PO DAILY BP (Reported) Aspirin (Ecotrin) 81 MG TABLET.DR 2 TAB PO DAILY HEART HEALTH (Reported) CALCIUM CARBONATE/VITAMIN D3 (Calcium 600 + Vit D Tablet) 600 MG/400 IU TAB 2 TAB PO DAILY SUPPLEMENT (Reported) Cholecalciferol (Vitamin D3) 1,000 IU TAB 2 TAB PO QPM SUPPLEMENT (Reported) Chondroitin Sulf/Glucosamine (Glucosamine & Chondroitin) 1 CAP CAP 2 CAP PO DAILY SUPPLEMENT (Reported) Estradiol (Estring) 7.5 MCG/24 HOUR VAG.RING 1 EACH VG Q3M HRT (Reported) Krill Oil ([employer] Krill Oil) (Unknown Strength) SGL (Unknown Dose) PO QPM SUPPLEMENT (Reported) Lactobacillus Acidophilus (Probiotic Formula Capsule) 10B CELL CAPSULE 1 CAP PO QPM SUPPLEMENT (Reported) Levothyroxine Sodium 0.088 MG TAB 1 TAB PO DAILY AC THYROID (Reported) Lisinopril 40 MG TABLET 1 TAB PO DAILY BP (Reported) Magnesium (Magnesium Citrate) 100 MG TAB 800 MG PO DAILY SUPPLEMENT (Reported ) Multivitamin (Multiple Vitamins) 1 EACH TABLET 2 TAB PO QPM SUPPLEMENT ( Reported) [TUMERIC] (Unknown Strength) (Unknown Dose) PO DAILY SUPPLEMENT (Reported) Turmeric Root Extract (Turmeric) (Unknown Strength) CAPSULE (Unknown Dose) PO QPM SUPPLEMENT (Reported) Triage Note: TRIAGE: PT TO ER C/C "I FELT ALMOST LIGHTHEADED AND EXTREMELY COLD". STATES LAYED DOWN AND CHECKED HER VITAL SIGNS. "I JUST FELT THAT I SHOULD COME HERE." PT B/P WAS 129/67 THIS MORNING AND 160'S/80'S X 3 CHECKS THIS EVENING. DENIES ANY PAIN. STATES HR FELT FAST BUT WAS IN THE 60'S. WAS SEEN HERE ON 02/26 FOR S/S OF RAPID HEARTRATE AND WAS FOUND TO BE IN AFIB. Triage Nurses Notes Reviewed? yes Onset: Abrupt Duration: better, gone now Timing: single episode today Quality/Severity: moderate Radiation: no radiation HPI: Patient is a 70-year-old female with a past medical history of hypertension, hypothyroidism, and basal cell carcinoma who had a recent admission to [facility] on February 2604 04 for concerns of new onset of atrial fibrillation in which patient was given Cardizem initially however per hospital records Dr. Miramontes did not warrant anticoagulation for patient. Patient had echocardiogram after admitted and noted to have ejection fraction 65%. It was noted through hospital records the patient also has been complaining of a week history of upper rest for a complaints Prior to admission Patient was in her normal state of health today and after eating dinner at approximately 1800 she stood up and felt suddenly dizzy and lightheaded and cold and clammy which symptoms had resolved approximately half hour later. Since patient has been asymptomatic however due to recent admission and concerns of atrophic ablation patient wanted to be "checked out". Patient took blood pressure readings and heart rate in which she was noted to be between 65 and 75 bpm and blood pressure was approximately 160/80 Currently patient is asymptomatic and takes her home medications as directed and is compliant. Patient was not prescribed any medications after she was discharged from the emergency room on (PORTILLO ROMAN) Past History Travel History Traveled to [place] past 21 day No Medical History Any Pertinent Medical History? 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 . MOTHER (Dementia). . Hx Contributory? No (PORTILLO ROMAN) Review of Systems Review of Systems Constitutional: Reports: see HPI. EENTM: Reports: no symptoms. Respiratory: Reports: no symptoms. Cardiovascular: Reports: no symptoms. GI: Reports: no symptoms. Genitourinary: Reports: no symptoms. Musculoskeletal: Reports: no symptoms. Skin: Reports: no symptoms. Neurological/Psychological: Reports: no symptoms. Hematologic/Endocrine: Reports: no symptoms. Immunologic/Allergic: Reports: no symptoms. All Other Systems: Reviewed and Negative (PORTILLO ROMAN) Physical Exam Physical Exam General Appearance: well developed/nourished, no apparent distress, alert Cardiovascular: regular rate/rhythm Comments: Well-developed well-nourished person in no acute distress HEENT: Normal EENT exam, extraocular motion intact, no nystagmus. Pupils equally round and reactive to light and accommodation. Nose is atraumatic. External auditory canal and Tympanic membranes clear. Pharynx normal. No swelling or edema. Neck: Supple, no lymphadenopathy, normal range of motion without pain or tenderness Back: Nontender, no CVA tenderness. Cardiovascular: Regular rate and rhythms no murmurs rubs or gallops, normal JVP Respiratory: Chest nontender. No respiratory distress.breath sounds clear to auscultation bilaterally Abdomen: Soft, nontender nondistended, no appreciable organomegaly. Normal bowel sounds. No ascites Extremity: No edema, no calf tenderness to palpation, normal and equal pulses. Neuro: Alert oriented x3, motor sensory normal, Skin: No appreciable rash on exposed skin, skin is warm and dry. Psych: Mood and affect is normal, memory and judgment is normal. Core Measures ACS in differential dx? No Severe Sepsis Present: No Septic Shock Present: No (PORTILLO ROMAN) Progress Differential Diagnosis: AMI, aortic dissection, atrial fibrillation, cholecystitis, CHF/pulm edema, costochondritis, hyperkalemia, hypovolemia, hyperthyroid, hyperventilation, intracranial hemorrhage, musculoskeletal pain, myocarditis, pancreatitis, pericarditis, pneumonia, pneumothorax, PSVT, pulmonary embolism, PUD/GERD, PVCs/PACs, respiratory failure, rib fracture, sepsis, unstable angina, V-fib/V-Tach, WPW syndrome Plan of Care: Orders Procedure Date/time Status TROPONIN LEVEL 03/03 0000 Complete EKG 03/03 0000 Active EKG 01/15 2232 Active Telemetry/Shake Maker 03/02 1956 Active THYROID STIMULATING HORMONE 03/02 1956 Complete TROPONIN LEVEL 03/02 1956 Complete FREE T4 03/02 1956 Complete COMPREHENSIVE METABOLIC PANEL 03/02 1956 Complete CBC WITHOUT DIFFERENTIAL 03/02 1956 Complete EKG 03/02 1901 Active Laboratory Tests 03/03/16 0028: Troponin I 0.02 03/02/16 2000: Anion Gap 9, Estimated GFR > 60, BUN/Creatinine Ratio 36.7 H, Glucose 88, Calcium 9.9, Total Bilirubin 0.4, AST 26, ALT 28, Alkaline Phosphatase 62, Troponin I 0.02, Total Protein 6.8, Albumin 4.0, Globulin 2.8, Albumin/Globulin Ratio 1.4, TSH 2.160, Free T4 1.42, CBC w Diff NO MAN DIFF REQ, RBC 4.34, MCV 91.0, MCH 31.0, RDW 12.9, MPV 8.7, Gran % 67.6, Lymphocytes % 24.9, Monocytes % 3.7, Eosinophils % 3.5, Basophils % 0.3, Absolute Granulocytes 4.2, Absolute Lymphocytes 1.6, Absolute Monocytes 0.2, Absolute Eosinophils 0.2, Absolute Basophils 0, PUBS MCHC 34.1 Patient currently is in no apparent distress and has had no symptoms for approximately 90 minutes. Patient on radiation monitor noted to be normal sinus rhythm 56 bpm. 03/02/2016 10:17:23 PM patient still had no exacerbation of symptoms and was asymptomatic while in the emergency room. First set of cardiac enzymes was unremarkable patient in normal sinus rhythm on radiation monitor noted to be 54 bpm. Patient was strongly advised to have a second troponin drawn 4 hours after initial and a repeat EKG and which this was ordered at 8 PM in which the repeat was ordered at midnight tonight. Discussed disposition plan with Dr. López who agrees patient still has no symptoms while in the emergency room. 03/02/2016 11:44:36 PM-reevaluation the patient patient has still been asymptomatic and denies any symptoms. Repeat blood work of troponin and EKG will be performed in 15 minutes Patient still is in sinus rhythm 58 bpm 03/03/2016 12:34:18 AM patient's repeat EKG was noted to be normal sinus rhythm 53 bpm with concerns of LVH unchanged from 2 other EKGs performed today here at patient on radiation monitor noted to be 52 bpm. 03/03/2016 1:10:59 AM patient still is in no apparent distress normal sinus rhythm 53 bpm Discussed disposition and plan with Dr. López who agrees \\ Patient's second set of troponin was unremarkable no changes My suspicion of pulmonary embolism is low (PORTILLO ROMAN) Diagnostic Imaging: Viewed by Me: Radiology Read. CXR Impression: SEE COMMENTS Initial ED EKG: SINUS RHYTHM NOTICED 69 BPM Repeat EKG: unchanged (50 BPM) Comments: PATIENT: RYLIE ADHIKARI PRESENT AGE: 70 PATIENT ACCOUNT NO: [id number] : 44 LOCATION: [facility] ORDERING PHYSICIAN: PORTILLO PORTER SERVICE DATE: 03/02/16 EXAM TYPE: RAD - XRY-PORTABLE CHEST XRAY EXAMINATION: XR PORTABLE CHEST CLINICAL INFORMATION: Atrial fibrillation. Lightheaded. Cold symptoms. COMPARISON: Chest radiography 02/26/2016. TECHNIQUE: Portable view of the chest was obtained. FINDINGS: The lungs are well expanded. Minimal streaky left basilar opacification suggesting a degree of subsegmental atelectasis. No other new consolidation, pleural effusion, pulmonary edema, or pneumothorax. No mediastinal widening. No acute osseous abnormalities. IMPRESSION: Favors minimal subsegmental atelectasis at the left lung base. No pulmonary edema or convincing evidence of lobar pneumonia. (PORTILLO ROMAN) Departure Departure Disposition: HOME OR SELF CARE Condition: Stable Clinical Impression Primary Impression: Light-headed feeling Referrals: NEIL BENÍTEZ,ANGELLA Butterfield (PCP/Family) Additional Instructions: As discussed continue home medications as directed. Follow-up with your laborer laboratory on Thursday as you have an appointment already scheduled. If symptoms worsen or IF YOU develop a new concerning symptom return to emergency room immediately. Departure Forms: Customer Survey General Discharge Information (PORTILLO ROMAN) PA/EDGE BURNISHER UPPERS Co-Sign Statement Statement: ED Attending supervision documentation- [X] I saw and evaluated the patient. I have also reviewed all the pertinent lab results and diagnostic results. I agree with the findings and the plan of care as documented in the PA's/EDGE BURNISHER UPPERS's documentation. [X] I have reviewed the ED Record and agree with the PA's/EDGE BURNISHER UPPERS's documentation. [] Additions or exceptions (if any) to the PAs/EDGE BURNISHER UPPERS's note and plan are summarized below: [] (CORAL BENÍTEZ,CAROL Bajwa) Critical Care Note Critical Care Note Critical Care Time: non-applicable (JULIEN PORTER,PORTILLO)
[2016-03-02 20:09] LABS: ABSOLUTE BASOPHIL COUNT 0 /CUMM (0.0-0.2); ABSOLUTE EOSINOPHIL COUNT 0.2 /CUMM (0.0-0.7); ABSOLUTE GRANULOCYTE CT 4.2 /CUMM (1.4-6.5); ABSOLUTE LYMPH COUNT 1.6 /CUMM (1.2-3.4); ABSOLUTE MONOCYTE COUNT 0.2 /CUMM (0.10-0.60); BASOPHIL % 0.3 % (0.0-2.0); EOSINOPHIL % 3.5 % (0-5); HEMATOCRIT 39.5 % (37-47); MEAN CORPUSCULAR HGB CONC 34.1 G/DL (33.0-37.0); MEAN PLATELET VOLUME 8.7 FL (7.4-10.4); PLATELET COUNT 222 /CUMM (130-400); RBC DISTRIBUTION WIDTH 12.9 % (11.5-14.5); RED BLOOD CELL CT 4.34 /CUMM (4.20-5.40); WHITE BLOOD CELL COUNT 6.2 /CUMM (4.8-10.8)
[2016-03-02 20:10] LABS: GRANULOCYTE % 67.6 % (42.2-75.2)
--- NOTE | 2016-03-02 20:26 | RADIOLOGY REPORT ---
EXAMINATION: XR PORTABLE CHEST CLINICAL INFORMATION: Atrial fibrillation. Lightheaded. Cold symptoms. COMPARISON: Chest radiography 02/26/2016. TECHNIQUE: Portable view of the chest was obtained. FINDINGS: The lungs are well expanded. Minimal streaky left basilar opacification suggesting a degree of subsegmental atelectasis. No other new consolidation, pleural effusion, pulmonary edema, or pneumothorax. No mediastinal widening. No acute osseous abnormalities. IMPRESSION: Favors minimal subsegmental atelectasis at the left lung base. No pulmonary edema or convincing evidence of lobar pneumonia.
[2016-03-03 01:19] VITALS: BP 169/74
== END 2016-03-03 01:19 ==
LOC: ERH 18:58
PROVIDERS: Physician Assistant
DX: R42 Dizziness and giddiness (principal)
CPT/HCPCS: 93005; 93010

== ENCOUNTER 2016-03-29 15:22 | Inpatient (IN) | payer OTHER, MEDICARE ==
[~2016-03-29] VITALS: Ht 167.6 cm; Wt 68.0 kg
--- NOTE | 2016-03-29 15:31 | NUR ---
70 YO FEMALE TO ER C/O PALPITATIONS. 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 PT STAETS HX OF AFIB. DENEIS CHEST PAIN/SOB. HR 133 AT THIS TIME,. EKG IN PROGRESS
--- NOTE | 2016-03-29 15:35 | ED GENERAL ADULT ---
History of Present Illness General Chief Complaint: Dyspnea (COPD, CHF, Other) Stated Complaint: PT IS HAVING RAPID HEART BEAT Source: patient, old records Exam Limitations: no limitations Vital Signs & Intake/Output Vital Signs & Intake/Output Vital Signs Date Time Temp Pulse Resp B/P Pulse O2 O2 Flow FiO2 Ox Delivery Rate 03/29 1906 76 18 127/65 100 Room Air 03/29 1742 98.6 70 18 137/69 98 Nasal 2.0L Cannula 03/29 1713 71 18 140/74 100 Room Air 03/29 1712 105 142/74 03/29 1643 101 142/74 99 03/29 1618 89 140/91 03/29 1613 70 18 126/76 96 Room Air 03/29 1612 145 18 140/90 100 Room Air 03/29 1558 99 Room Air 03/29 1531 98.6 133 18 161/99 97 Room Air Allergies Coded Allergies: NO KNOWN ALLERGIES (03/02/16) Reconcile Medications Amlodipine Besylate (Norvasc) 5 MG TABLET 1 TAB PO DAILY BP (Reported) Aspirin (Ecotrin*) 81 MG TABLET.DR 2 TAB PO QPM HEART HEALTH (Reported) Bacillus Coagulans/Inulin (Probiotic Formula Capsule) (Unknown Strength) CAPSULE (Unknown Dose) PO QPM SUPPLEMENT (Reported) Calcium Carbonate/Vitamin D3 (Calcium 600 + Vit D Tablet) (Unknown Strength) TABLET 2 TAB PO QPM SUPPLEMENT (Reported) Cholecalciferol (Vitamin D3) (Vitamin D3) 2,000 UNIT TABLET 1 TAB PO QPM SUPPLEMENT (Reported) Estradiol (Estring) 7.5 MCG/24 HOUR VAG.RING 1 EACH VG Q3M HRT (Reported) Glucosa Kelley 2KCL/Chondroitin Kelley (Glucosamine & Chondroitin Cap) (Unknown Strength ) CAPSULE 2 CAP PO QPM SUPPLEMENT (Reported) Krill Oil (Unknown Strength) CAPSULE (Unknown Dose) PO QPM SUPPLEMENT ( Reported) Levothyroxine Sodium 88 MCG TABLET 1 TAB PO DAILY AC THYROID (Reported) Lisinopril 40 MG TABLET 1 TAB PO DAILY BP (Reported) Magnesium Citrate 100 MG TABLET 800 MG PO QPM SUPPLEMENT (Reported) Multivitamin (Multiple Vitamins) 1 EACH TABLET 2 TAB PO QPM SUPPLEMENT ( Reported) Turmeric Root Extract (Turmeric) (Unknown Strength) CAPSULE (Unknown Dose) PO QPM SUPPLEMENT (Reported) Triage Note: 70 YO FEMALE TO ER C/O PALPITATIONS. 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 PT STAETS HX OF AFIB. DENEIS CHEST PAIN/SOB. HR 133 AT THIS TIME,. EKG IN PROGRESS Triage Nurses Notes Reviewed? yes Onset: Gradual Duration: hour(s): (2) Timing: recent history Injury Environment: home Severity: moderate Severity Numbers: 8 No Modifying Factors: none HPI: Patient is a 70-year-old female with recently diagnosed paroxysmal atrial fibrillation presenting to the emergency department chief complaining of palpitations that started about 2 hours prior to arrival. She was grocery shopping when it started. She was recently admitted to the hospital overnight for rapid A. fib last month. She denies any medication changes. She denies any blood thinners. She reports that after she was given a medication through the IV her rapid heart rate stopped and it has been fine ever since. Denies any nausea (SURYA RODRIGES) Past History Travel History Traveled to [place] past 21 day No Medical History Any Pertinent Medical History? 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 . MOTHER (Dementia). . Hx Contributory? No (SURYA RODRIGES) Review of Systems Review of Systems Constitutional: Reports: no symptoms. Comments Review of systems: See HPI, All other systems negative. Constitutional, no chills fever or weight loss HEENT: No visual changes no sore throat no congestion Cardiovascular: No chest pain , orthopnea or ankle swelling Skin, no jaundice no rashes Respiratory: No dyspnea cough sputum or hemoptysis GI: No nausea no vomiting : No dysuria No hematuria Muscle skeletal: no back pain, no neck pain, Neurologic: No numbness no confusion Psych: No stress anxiety or depression,. Heme/endocrine: No bruising no bleeding no polyuria or polydipsia Immunology: No splenectomy or history of AIDS (SURYA RODRIGES) Physical Exam Physical Exam General Appearance: well developed/nourished, no apparent distress, alert, awake , comfortable Comments: Well-developed well-nourished person in no acute distress HEENT: Pupils equally round and reactive to light and accommodation. Nose is atraumatic. Neck: Normal inspection Back: NontendeR Cardiovascular: IRRegular rate and rhythms no murmurs rubs or gallops, normal JVP Respiratory: Chest nontender. No respiratory distress.breath sounds clear to auscultation bilaterally Abdomen: Soft, nontender nondistended, no appreciable organomegaly. Normal bowel sounds. No ascites Extremity: No edema, no calf tenderness to palpation, normal and equal pulses. Neuro: Alert oriented x3, motor sensory normal Skin: No appreciable rash on exposed skin, skin is warm and dry. Psych: Mood and affect is normal, memory and judgment is normal. Core Measures ACS in differential dx? Yes CVA/TIA Diagnosis: No Severe Sepsis Present: No Septic Shock Present: No (SURYA RODRIGES) Progress Differential Diagnoses I considered the following diagnoses in my evaluation of the patient: Uncontrolled atrial fibrillation, sinus bradycardia syndrome, Plan of Care: Orders Procedure Date/time Status Regular Diet 03/29 D Active Patient Data 03/[address] in observation 03/29 1726 Active Intake & Output 03/29 1557 Active OXYGEN SETUP (GEN) 03/29 1547 Active Saline Lock 03/29 1547 Active Vital Signs 03/29 1547 Active Activity/Ambulation 03/29 1547 Active Code Status 03/29 1547 Active Add-on Test (ER Only) 03/29 1537 Active TSH REFLEX 03/29 1527 Complete TROPONIN LEVEL 03/29 1527 Complete PARTIAL THROMBOPLASTIN TIME 03/29 1527 Complete PROTHROMBIN TIME 03/29 1527 Complete MAGNESIUM 03/29 1527 Complete COMPREHENSIVE METABOLIC PANEL 03/29 1527 Complete CBC WITHOUT DIFFERENTIAL 03/29 1527 Complete EKG 03/29 1524 Active Laboratory Tests 03/29/16 1544: Anion Gap 10, Estimated GFR > 60, BUN/Creatinine Ratio 21.4, Glucose 122 H, Calcium 9.5, Magnesium 2.0, Total Bilirubin 0.5, AST 26, ALT 32, Alkaline Phosphatase 66, Troponin I 0.02, Total Protein 7.0, Albumin 4.3, Globulin 2.7, Albumin/Globulin Ratio 1.6, TSH &T3 &Free T4 Intrp 1.210, PT 12.7 H, INR 1.21 H, APTT 30, CBC w Diff NO MAN DIFF REQ, RBC 4.94, MCV 92.4, MCH 30.9, RDW 13.5, MPV 9.8, Gran % 70.2, Lymphocytes % 22.2, Monocytes % 6.0, Eosinophils % 1.2, Basophils % 0.4, Absolute Granulocytes 5.1, Absolute Lymphocytes 1.6, Absolute Monocytes 0.4, Absolute Eosinophils 0.1, Absolute Basophils 0, PUBS MCHC 33.5 Initial ED EKG: RAPID ATRIAL FIBRILLATION AT 133 BPM Comments: 03/29/2016 3:36:21 PM on arrival patient in no acute distress, EKG shows rapid A. fib. Patient laying of palpitations. No other complaints. Spoke with Dr. Beach, he would like to start her on eliquis 5 mg twice a day. Patient was not started on any anticoagulation and rate control. Patient started on Cardizem drip. (SURYA RODRIGES) Departure Departure Time of Disposition: 1718 Disposition: STILL A PATIENT Condition: Stable Clinical Impression Primary Impression: Rapid atrial fibrillation Referrals: NEIL BENÍTEZ,ANGELLA Butterfield (PCP/Family) Departure Forms: Customer Survey General Discharge Information Observation Note Spoke With: ANA CRISTINA BEACH MD Physician Advisor Notified: TARA BENÍTEZ,THANH Bajwa Place Patient In: Non-ED OBS Care Area Rationale for Observation: My rational for observation is as follows . Patient requiring rate control via IV Cardizem, requests, cardiology consultation, telemetry monitoring. Discharge at this time would be medically harmful. (SURYA RODRIGES) PA/OPTICIAN Co-Sign Statement Statement: ED Attending supervision documentation- x I saw and evaluated the patient. I have also reviewed all the pertinent lab results and diagnostic results. I agree with the findings and the plan of care as documented in the PA's/OPTICIAN's documentation. [] I have reviewed the ED Record and agree with the PA's/OPTICIAN's documentation. [] Additions or exceptions (if any) to the PAs/OPTICIAN's note and plan are summarized below: [] (RANJAN ALARCON MD) Critical Care Note Critical Care Note Critical Care Time: 30-74 min (BENIGNO PORTER,SURYA)
--- NOTE | 2016-03-29 15:48 | NUR ---
BLOOD DRAWN AND SENT TO LAB (BLUE, SST, PINK, GARCIA, LAV)
[2016-03-29 16:03] LABS: ABSOLUTE BASOPHIL COUNT 0 /CUMM (0.0-0.2); ABSOLUTE EOSINOPHIL COUNT 0.1 /CUMM (0.0-0.7); ABSOLUTE GRANULOCYTE CT 5.1 /CUMM (1.4-6.5); ABSOLUTE LYMPH COUNT 1.6 /CUMM (1.2-3.4); ABSOLUTE MONOCYTE COUNT 0.4 /CUMM (0.10-0.60); BASOPHIL % 0.4 % (0.0-2.0); EOSINOPHIL % 1.2 % (0-5); GRANULOCYTE % 70.2 % (42.2-75.2); HEMATOCRIT 45.6 % (37-47); MEAN CORPUSCULAR HGB 30.9 PG (27.0-31.0); MEAN CORPUSCULAR HGB CONC 33.5 G/DL (33.0-37.0); MEAN CORPUSCULAR VOLUME 92.4 FL (81.0-99.0); MEAN PLATELET VOLUME 9.8 FL (7.4-10.4); PLATELET COUNT 199 /CUMM (130-400); RBC DISTRIBUTION WIDTH 13.5 % (11.5-14.5); RED BLOOD CELL CT 4.94 /CUMM (4.20-5.40); WHITE BLOOD CELL COUNT 7.2 /CUMM (4.8-10.8)
[2016-03-29 16:08] LABS: PT 12.7 SEC (9.4-12.5); PTT 30 SEC (25-37)
--- NOTE | 2016-03-29 16:12 | NUR ---
IV ESTABLISHED, MEDICATED WITH CARDIZEM, HR IMPROVED TO 90, PT REPORTING SHE IS FEELING BETTER AFTER MEDS, WILL CTM.
--- NOTE | 2016-03-29 16:41 | NUR ---
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 HANNA PORTER AWARE, PHARMACY CALLED FOR CARDIZEM GTT, REPORTING IT WILL BE READY IN APPROX 10-15 MIN
[2016-03-29] MEDS ORDERED: TURMERIC500 M1 PO (17:13)
--- NOTE | 2016-03-29 17:13 | NUR ---
PT STARTED ON CARDIZEM GTT, REPORTING SHE IS FEELING BETTER, WILL CTM CLOSELY.
--- NOTE | 2016-03-29 17:42 | NUR ---
PT NOTED TO HAVE PAUSES AGAIN, BP RECHECKED AND STABLE AT 137/69.
--- NOTE | 2016-03-29 18:26 | NUR ---
PT RESTING COMFORTABLY, PAUSES LESS FREQUENT NOW, HR BETWEEN 68-78, WILL CTM.
--- NOTE | 2016-03-29 19:05 | NUR ---
PT CONTINUES TO HAVE PAUSES, MOD PAGED TO ATTEMPT TO REACH HOUSE STAFF TO NOTIFY THEM.
--- NOTE | 2016-03-29 19:12 | NUR ---
bed 175-1
--- NOTE | 2016-03-29 19:16 | History & Physical ---
GLENJASWANTCHALINOKENNETH 03/29/16 405: General Information and HPI MD Statement: I have seen and personally examined RYLIE ADHIKARI and documented this H&P. The patient is a 70 year old F who presented with a patient stated chief complaint of [DYSPNEA]. Source of Information: patient, family Exam Limitations: no limitations History of Present Illness: This is a 70-year-old female past medical history of atrial fibrillation, hypertension, hypothyroidism ,basal cell carcinoma, endometriosis, came in with chief complaint of palpitations. The patient was doing okay when she went to gym today morning after staying home for couple days due to snow,usually does 1 hour of cardio workout, but today she felt funny and didnt feel like herself so left the workout at 30 minutes, after that latter at aroudn 1;30 PM ,she was really feeling bad, not herself ,so she went and self monitored her heart rate which was around 130 and now she also felt lightheaded and dizzy, therefore she came into [facility]. She also reports that after her last discharge from [facility] ,she has been feeling a tightness and discomfort in chest that she is uncomfortable with her usual bra and needs to remove it which makes her feel much better. She also reprots to feel ac little bit more colder than usual At baseline, she does have atrial fibrillation rate controlled but not an nay AC ( not sure of why?) Allergies/Medications Allergies: Coded Allergies: NO KNOWN ALLERGIES (03/02/16) Compliance With Home Meds: GOOD Past History Travel History Traveled to [place] past 21 day No Medical History Neurological: NONE EENT: NONE Cardiovascular: AFIB, hypertension Respiratory: NONE Gastrointestinal: NONE Hepatic: NONE Renal: NONE Musculoskeletal: NONE Psychiatric: NONE Endocrine: hypothyroidism Blood Disorders: NONE Cancer(s): basal cell carcinoma [employer]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 . MOTHER (Dementia). . Psychosocial History Where do you live? Home Smoking Status: Never Smoked ETOH Use: recentyl reduced since last one month Illicit Drug Use: denies illicit drug use Functional Ability ADLs Independent: dressing, eating, toileting, bathing. Ambulation: independent IADLs Independent: shopping, housework, finances, food prep, telephone, transportation , medication admin. Review of Systems Review of Systems Constitutional: Reports: see HPI. EENTM: Denies: blurred vision, double vision, visual changes, eye pain. Cardiovascular: Reports: palpitations. Denies: chest pain, edema, orthopena, peripheral edema, syncope. Respiratory: Denies: cough, hemoptysis, orthopnea, short of breath, sputum production, stridor, wheezing. GI: Denies: abdominal pain, bloating, constipation, diarrhea, distention. Genitourinary: Denies: discharge, dysuria, frequency, hematuria, hesitation. Musculoskeletal: Denies: back pain, gout, joint pain, joint swelling, muscle pain. Skin: Denies: cysts, change in skin color, change in hair/nails, dryness. Neurological/Psychological: Reports: no symptoms. Hematologic/Endocrine: Reports: no symptoms. Immunologic/Allergic: Reports: no symptoms. All Other Systems: Reviewed and Negative Exam & Diagnostic Data Last 24 Hrs of Vital Signs/I&O Vital Signs Date Time Temp Pulse Resp B/P Pulse O2 O2 Flow FiO2 Ox Delivery Rate 03/29 1906 76 18 127/65 100 Room Air 03/29 1742 98.6 70 18 137/69 98 Nasal 2.0L Cannula 03/29 1713 71 18 140/74 100 Room Air 03/29 1712 105 142/74 03/29 1643 101 142/74 99 03/29 1618 89 140/91 03/29 1613 70 18 126/76 96 Room Air 03/29 1612 145 18 140/90 100 Room Air 03/29 1558 99 Room Air 03/29 1531 98.6 133 18 161/99 97 Room Air Intake & Output 03/29 1600 03/29 0800 03/29 0000 Intake Total 500 Output Total 1100 Balance -600 Intake, IV 500 Output, Urine 1100 Patient 68.039 kg Weight Physical Exam General Appearance Alert, Oriented X3, Cooperative, Mild Distress, very anxious Skin No Rashes, No Breakdown, No Significant Lesion HEENT Atraumatic, PERRLA, EOMI Neck Supple, No JVD, No thryomegaly Lymphatic no lad Cardiovascular Normal S1, Normal S2, irregualrly irregualr Lungs Clear to Auscultation, Normal Air Movement Abdomen Normal Bowel Sounds, Soft, No Tenderness Neurological Strength at 5/5 X4 Ext, Normal Tone, Sensation Intact, Cranial Nerves 3-12 NL, Reflexes 2+ Extremities No Clubbing, No Cyanosis, No Edema, Normal Pulses Vascular Normal Pulses Assessment/Plan Assessment: This is a 70-year-old female past medical history of atrial fibrillation, hypertension, hypothyroidism on basal cell carcinoma, endometriosis, came in with chief complain of palpitations. Vitals on presentation temperature of 98.6, pulse of 76, respiration of 18, blood pressure 127/65, she was 100% saturating on room air. White count of 7.2, H/H of 15.3/45.6, platelet count of 199. Review of 143, potassium of 3.7, anion gap of 10, BUN and creatinine of 15/0.7, GLU- 122. , LFTs negative, troponin I less than 0.02. TSH and free T4 T3, within normal limits Problem list along with assessment and plan #1 Rule out ACS * Ct monitoring vitals every shift * ct to trend troponin and EKG. * First set of troponin negatvie * Cardiology on board. #2 Uncontrolled A fib * RAte > 100 * Intially patient was started on iv cardizem drip for rate control, however she continued to have sinus pauses , there cardizem drip was held. * Please ct to monitor HR colsely. * Will check Mg levels. #3 H/o hypothyroidism * TFT's within normal limit * Ct home dose of levothyroxine. #4 Ct asprin #5 Hypertension * Ct watching BP closely. * Continue home medication of amlodipine 5mg and lisinorpil 40 mg FC dvt px : lovenox heart healthy deit Mild, moderate, severe PP ordered. As Ranked By This Provider Problem List: 1. Atrial fibrillation and flutter 2. Intermittent palpitations 3. Hypertension 4. Hypothyroid 5. Light-headed feeling 6. Rapid atrial fibrillation Core Measures/Miscellaneous Acute Coronary Syndrome ACS Diagnosis: No Cerebrovascular Accident CVA/TIA Diagnosis: No Congestive Heart Failure CHF Diagnosis: No Venous Thromboembolism VTE Risk Factors: Age > 40 VTE Prophylaxis Ordered Inpt: Pharm- Lovenox No Mech VTE prophylaxis d/t: No contraindications No VTE Pharm Prophylaxis d/t: No contraindications VTE Diagnosis: No VTE Type: NONE VTE Confirmed by (Test): NONE Severe Sepsis Severe Sepsis Present: No Septic Shock Septic Shock Present: No Miscellaneous Documentation Attending Case Discussed With: ANA CRISTINA BEACH MD Primary Care Physician: ANGELLA TREJO MD Patient sees these Specialists county administrator Level of Patient Care: Telemetry ANA CRISTINA BEACH MD 03/29/16 0158: General Information and HPI Allergies/Medications Home Med list Apixaban (Eliquis) 5 MG TABLET 1 TAB PO BID Blood thinner Aspirin (Ecotrin*) 81 MG TABLET.DR 2 TAB PO QPM HEART HEALTH (Reported) Aspirin (Ecotrin*) 81 MG TABLET.DR 1 TAB PO QPM HEART HEALTH Bacillus Coagulans/Inulin (Probiotic Formula Capsule) (Unknown Strength) CAPSULE (Unknown Dose) PO QPM SUPPLEMENT (Reported) Calcium Carbonate/Vitamin D3 (Calcium 600 + Vit D Tablet) (Unknown Strength) TABLET 2 TAB PO QPM SUPPLEMENT (Reported) Cholecalciferol (Vitamin D3) (Vitamin D3) 2,000 UNIT TABLET 1 TAB PO QPM SUPPLEMENT (Reported) Estradiol (Estring) 7.5 MCG/24 HOUR VAG.RING 1 EACH VG Q3M HRT (Reported) Glucosa Kelley 2KCL/Chondroitin Kelley (Glucosamine & Chondroitin Cap) (Unknown Strength ) CAPSULE 2 CAP PO QPM SUPPLEMENT (Reported) Krill Oil (Unknown Strength) CAPSULE (Unknown Dose) PO QPM SUPPLEMENT ( Reported) Levothyroxine Sodium 88 MCG TABLET 1 TAB PO DAILY AC THYROID (Reported) Lisinopril 40 MG TABLET 1 TAB PO DAILY BP (Reported) Magnesium Citrate 100 MG TABLET 800 MG PO QPM SUPPLEMENT (Reported) Multivitamin (Multiple Vitamins) 1 EACH TABLET 2 TAB PO QPM SUPPLEMENT ( Reported) Sotalol HCl (Sotalol) 80 MG TABLET 1 TAB PO BID HEART HEALTH Turmeric Root Extract (Turmeric) (Unknown Strength) CAPSULE (Unknown Dose) PO QPM SUPPLEMENT (Reported) Attending MD Review Statement Attending Statement Attending MD Statement: examined this patient, discuss w/resident/PA/PARTS CLERK, agreed w/resident/PA/PARTS CLERK, discussed with family, reviewed EMR data (avail), reviewed images, amended to note Attending Assessment/Plan: Agree with house staff note above. Patient seen and examined independently. 70 -year-old female with history of paroxysmal atrial fibrillation, admitted with epinephrine atrial fibrillation, started on IV diltiazem for rate control. She is noted to have prolonged pauses up to 5 seconds while on IV diltiazem. review of systems: No fever. No chills. No rash. No tremor. All other systems are reviewed and are noted to be negative. Physical examination: Gen: The patient is in no acute distress HEENT: Normal nose, ears, and oropharynx. Pupils equal bilaterally. Conjunctiva normal. Neck: Supple with no JVD, no masses, and no thyromegaly Lungs: Clear to auscultation with normal respiratory effort Heart: RRR, S1, S2, no murmurs. No peripheral edema, 2+ pulses in the lower extremities bilaterally Abdomen: Soft, nontender, no masses. No hepatomegaly. No splenomegaly Extremities: No clubbing or cyanosis. Normal muscle strength in the upper and lower extremities. Skin: Normal skin turgor with no skin ulcers or lesions noted. Neuro: Cranial nerves intact. Sensation intact Psych: Alert and oriented 3 with appropriate affect Chest x-ray March 02, 2016: Favors minimal subsegmental atelectasis at the left lung base. No pulmonary edema or convincing evidence of lobar pneumonia. EKG tracing is independently reviewed, and reveals atrial fibrillation with ventricular response of 133, left ventricular hypertrophy with repolarization abnormality, ST depression Assessment: 1. Hypertension 2. Paroxysmal atrial fibrillation with rapid ventricular rate Plan: * IV diltiazem for rate control. * Start Eliquis for stroke prevention in the setting of paroxysmal atrial fibrillation * Check serial troponin to rule out myocardial infarction.
[2016-03-29 19:48] VITALS: BP 160/90
--- NOTE | 2016-03-29 22:04 | NUR ---
NURSING NOTE; PT ARRIVED TO FLOOR FROM ER AT 1938. SHORTLY AFTER TRANFER, PT HAD A 4 SECOND PAUSE. HAD BEEN HAVING PAUSES IN THE ER PER REPORT. HEART RHYTHM AFIB. CARDIZEM GTT INFUSING AT 5MG/HR PLACED ON HOLD. RESIDENT EVALUTING PATIENT AT THE TIME. PATIENT CONTINUES TO HAVE MULTIPLE PAUSES. HR ELIANA TO 35 AT TIMES. HR 140'S AFIB AND ALSO APPEARS AFLUTTER 70'S AT TIMES. CARDIZEM GTT REMAINS OFF AND WAS DISCONTINUED. EVALUATED BY DR BEACH. PLAN TO TRANSFER PATIENT TO ICU FOR CLOSER MONITORING. VSS. TROPONINS NEGATIVE X2.
[2016-03-30] VITALS: BP 133/62
--- NOTE | 2016-03-30 01:25 | NUR ---
PT RECEIVED FROM 1NO A/O X3 ANXIOUS. DENIES PAIN. MONITOR AF WITH RVR 140'S WITH PAUSES FROM 3 TO 6 SEC SEE STRIPS BP STABLE, PT STATES SHE CAN FEEL HER HEART BEAT GET VERY SLOW AND IT MAKES HER NERVOUS. DR HERNANDEZ AWARE OF ARRYTHMIA. PT GIVEN INFORMATION PAPERS FOR AFIB AND PACEMAKER. ASKING APPROPRIATE QUESTIONS. AT 0017 HAD 6 SECOND PAUSE FOLLOWED BY JUNCTIONAL RYTHYM TO NSR RATE OF 75. DR NG AWARE.
[2016-03-30 06:16] LABS: ABSOLUTE BASOPHIL COUNT 0 /CUMM (0.0-0.2); ABSOLUTE EOSINOPHIL COUNT 0.3 /CUMM (0.0-0.7); ABSOLUTE LYMPH COUNT 1.8 /CUMM (1.2-3.4); ABSOLUTE MONOCYTE COUNT 0.6 /CUMM (0.10-0.60); BASOPHIL % 0.2 % (0.0-2.0); EOSINOPHIL % 3.6 % (0-5); GRANULOCYTE % 64.8 % (42.2-75.2); MEAN CORPUSCULAR HGB 30.8 PG (27.0-31.0); MEAN CORPUSCULAR HGB CONC 33.3 G/DL (33.0-37.0); MEAN CORPUSCULAR VOLUME 92.5 FL (81.0-99.0); MEAN PLATELET VOLUME 9.8 FL (7.4-10.4); PLATELET COUNT 196 /CUMM (130-400); RBC DISTRIBUTION WIDTH 13.4 % (11.5-14.5); RED BLOOD CELL CT 4.08 /CUMM (4.20-5.40); WHITE BLOOD CELL COUNT 7.8 /CUMM (4.8-10.8)
[2016-03-30 06:24] LABS: HEMATOCRIT 37.7 % (37-47)
[2016-03-30 08:00] VITALS: BP 122/76
--- NOTE | 2016-03-30 08:36 | PN- Resident CRCU ---
Subjective HPI/CRCU Issues: Patient was seen and examined, she is laying on bed looks relaxed uncomfortable. She denies chest pain, palpitation, or shortness breath. Patient now is on sinus rhythm with a heart rate in the 60s and maintaining a good blood pressure. She currently has no complaints Objective Vital Signs & I&O Last 8 Hrs of Vitals and I&O: Intake & Output 03/30 1600 03/30 0800 03/30 0000 Intake Total 200 400 Output Total 400 700 Balance -200 -300 Intake, Oral 200 400 Output, Urine 400 700 Patient 68.039 kg Weight Laboratory Tests 03/30 03/30 03/30 0600 0530 0500 Chemistry Sodium (137 - 145 mmol/L) 141 Potassium (3.5 - 5.1 mmol/L) 3.8 Chloride (98 - 107 mmol/L) 107 Carbon Dioxide (22 - 30 mmol/L) 26 Anion Gap (5 - 16) 8 BUN (7 - 17 mg/dL) 13 Creatinine (0.5 - 1.0 mg/dL) 0.7 Estimated GFR (>60 ml/min) > 60 Glucose (65 - 99 mg/dL) 84 Calcium (8.4 - 10.2 mg/dL) 8.9 Phosphorus (2.5 - 4.5 mg/dL) 4.0 Magnesium (1.6 - 2.3 mg/dL) 2.1 Total Bilirubin (0.2 - 1.3 mg/dL) 0.7 AST (14 - 36 U/L) 18 ALT (9 - 52 U/L) 32 Albumin (3.5 - 5.0 g/dL) 3.4 L Triglycerides (<150 mg/dL) 58 Cancelled Cholesterol (<200 MG/DL) 151 Cancelled LDL Cholesterol, Calc (65 - 129 mg/dL) 74 Cancelled HDL Cholesterol (40 - 60 mg/dL) 66 H Cancelled Cholesterol/HDL Ratio (0.00 - 4.23 %) 2 Cancelled Hematology CBC w Diff Cancelled NO MAN DIFF REQ WBC (4.8 - 10.8 /CUMM) Cancelled 7.8 RBC (4.20 - 5.40 /CUMM) Cancelled 4.08 L Hgb (12.0 - 16.0 G/DL) Cancelled 12.6 Hct (37 - 47 %) Cancelled 37.7 MCV (81.0 - 99.0 FL) Cancelled 92.5 MCH (27.0 - 31.0 PG) Cancelled 30.8 RDW (11.5 - 14.5 %) Cancelled 13.4 Plt Count (130 - 400 /CUMM) Cancelled 196 MPV (7.4 - 10.4 FL) Cancelled 9.8 Gran % (42.2 - 75.2 %) 64.8 Lymphocytes % (20.5 - 51.1 %) 23.7 Monocytes % (1.7 - 9.3 %) 7.7 Eosinophils % (0 - 5 %) 3.6 Basophils % (0.0 - 2.0 %) 0.2 Absolute Granulocytes (1.4 - 6.5 /CUMM) 5.0 Absolute Lymphocytes (1.2 - 3.4 /CUMM) 1.8 Absolute Monocytes (0.10 - 0.60 /CUMM) 0.6 Absolute Eosinophils (0.0 - 0.7 /CUMM) 0.3 Absolute Basophils (0.0 - 0.2 /CUMM) 0 PUBS MCHC (33.0 - 37.0 G/DL) Cancelled 33.3 03/30 03/29 03/29 0210 2210 2030 Chemistry Magnesium (1.6 - 2.3 mg/dL) 1.9 Troponin I (< 0.11 ng/ml) 0.02 0.03 Urines Urine Color (YEL,AMB,STR) YEL Urine Clarity (CLEAR) CLEAR Urine pH (5.0 - 8.0) 7.5 Ur Specific [place] (1.001 - 1.035) 1.015 Urine Protein (NEG,<30 MG/DL) NEG Urine Ketones (NEG) 15 H Urine Nitrite (NEG) POS H Urine Bilirubin (NEG) NEG Urine Urobilinogen (0.1 - 1.0 EU/dl) 0.2 Ur Leukocyte Esterase (NEG) NEG Ur Microscopic SEDIMENT EXAMINED Urine RBC (0 - 5 /HPF) 5-10 H Urine WBC (0 - 2 /HPF) 1-3 H Ur Epithelial Cells (NONE,FEW) FEW Urine Hemoglobin (NEG) MOD H Urine Glucose (N MG/DL) NEG 03/29 1544 Chemistry Sodium (137 - 145 mmol/L) 143 Potassium (3.5 - 5.1 mmol/L) 3.7 Chloride (98 - 107 mmol/L) 105 Carbon Dioxide (22 - 30 mmol/L) 28 Anion Gap (5 - 16) 10 BUN (7 - 17 mg/dL) 15 Creatinine (0.5 - 1.0 mg/dL) 0.7 Estimated GFR (>60 ml/min) > 60 BUN/Creatinine Ratio (7 - 25 %) 21.4 Glucose (65 - 99 mg/dL) 122 H Calcium (8.4 - 10.2 mg/dL) 9.5 Magnesium (1.6 - 2.3 mg/dL) 2.0 Total Bilirubin (0.2 - 1.3 mg/dL) 0.5 AST (14 - 36 U/L) 26 ALT (9 - 52 U/L) 32 Alkaline Phosphatase (<127 U/L) 66 Troponin I (< 0.11 ng/ml) 0.02 Total Protein (6.3 - 8.2 g/dL) 7.0 Albumin (3.5 - 5.0 g/dL) 4.3 Globulin (1.9 - 4.2 gm/dL) 2.7 Albumin/Globulin Ratio (1.1 - 2.2 %) 1.6 TSH &T3 &Free T4 Intrp (0.270 - 4.20 uIU/mL) 1.210 Coagulation PT (9.4 - 12.5 SEC) 12.7 H INR (0.90 - 1.19) 1.21 H APTT (25 - 37 SEC) 30 Hematology CBC w Diff NO MAN DIFF REQ WBC (4.8 - 10.8 /CUMM) 7.2 RBC (4.20 - 5.40 /CUMM) 4.94 Hgb (12.0 - 16.0 G/DL) 15.3 Hct (37 - 47 %) 45.6 MCV (81.0 - 99.0 FL) 92.4 MCH (27.0 - 31.0 PG) 30.9 RDW (11.5 - 14.5 %) 13.5 Plt Count (130 - 400 /CUMM) 199 MPV (7.4 - 10.4 FL) 9.8 Gran % (42.2 - 75.2 %) 70.2 Lymphocytes % (20.5 - 51.1 %) 22.2 Monocytes % (1.7 - 9.3 %) 6.0 Eosinophils % (0 - 5 %) 1.2 Basophils % (0.0 - 2.0 %) 0.4 Absolute Granulocytes (1.4 - 6.5 /CUMM) 5.1 Absolute Lymphocytes (1.2 - 3.4 /CUMM) 1.6 Absolute Monocytes (0.10 - 0.60 /CUMM) 0.4 Absolute Eosinophils (0.0 - 0.7 /CUMM) 0.1 Absolute Basophils (0.0 - 0.2 /CUMM) 0 PUBS MCHC (33.0 - 37.0 G/DL) 33.5 Exam General Appearance: well developed/nourished, no apparent distress, alert, awake , comfortable Head: atraumatic, normal appearance Neck: supple, No JVD Respiratory: normal breath sounds, chest non-tender, no respiratory distress Cardiovascular: regular rate/rhythm, Nl S1, S2 with no murmur Gastrointestinal: normal bowel sounds, soft, non-tender Extremities: no edema Current Medications: Current Medications Sig/Stella Start time Last Medication Dose Route Stop Time Status Admin Amlodipine Besylate 5 MG DAILY 03/30 1000 AC 03/30 PO 0936 Apixaban 5 MG BID 03/30 1000 DC 03/30 PO 0938 Apixaban 5 MG ONCE ONE 03/29 1600 DC 03/29 PO 03/29 1601 1640 Aspirin Buffered 162 MG QPM 03/30 2200 AC PO Calcium/Vitamin D 500 MG DAILY 03/30 1000 AC 03/30 PO 0936 Diltiazem HCl 10 MG ONCE ONE 03/29 1645 DC 03/29 IV 03/29 1646 1712 Diltiazem HCl 125 MG Q24H 03/29 1645 DC 03/29 Sodium Chloride 100 ML IV 1712 Diltiazem HCl 0 .STK-MED ONE 03/29 1636 DC .ROUTE Diltiazem HCl 0 .STK-MED ONE 03/29 1547 DC .ROUTE Diltiazem HCl 10 MG ONCE ONE 03/29 1545 DC 03/29 IV 03/29 1546 1618 Enoxaparin Sodium 40 MG DAILY 03/30 1000 CAN SC Levothyroxine Sodium 0.088 MG DAILY AC 03/30 0700 AC 03/30 PO 0603 Lisinopril 40 MG 1900 03/30 1900 AC PO Lisinopril 40 MG DAILY 03/30 1000 DC PO Melatonin 3 MG ONCE ONE 03/29 2330 DC 02/11 PO 03/29 2331 2345 Multivitamins 1 TAB DAILY 03/30 1000 CAN PO Multivitamins 2 TAB QPM 03/30 2200 AC Therapeutic PO Potassium Chloride 40 MEQ ONCE ONE 03/30 0845 DC 03/30 PO 03/30 0846 0938 Impression/Plan Impression/Problem List Impression: Problem list along with assessment and plan. #A fib Patient presented with Greer zhu, Intially patient was started on iv cardizem drip for rate control, however she continued to have sinus pauses that symptomatic and more than 5 seconds, because of this cardizem drip and all other rate control medication was DC'd. Patient spontaneously converted back to normal sinus rhythm. ACS was ruled out. * Patient will be nothing by mouth starting midnight for possible pacemaker implant tomorrow * The DC'd apixaban, and we will start heparin at 10 PM tonight(time for next apixaban dose) * We'll keep electrolytes when acceptable range #H/o hypothyroidism TFT's within normal limit * Continue home dose of levothyroxine. #Hypertension Continue home medication including * amlodipine 5mg * lisinorpil 40 mg FC dvt px : Heparin heart healthy deit, nothing by mouth midnight because going for pacemaker placement Problem List: 1. Rapid atrial fibrillation Pain Ratin Tomorrow's Labs & Rationales: cbc and icu bundle Plan DVT/Prophylaxis: mechanical, pharmacological
--- NOTE | 2016-03-30 11:34 | PN- Cardiology ---
Subjective Subjective: The patient was started on IV diltiazem for atrial fibrillation with rapid ventricular rate, and she was noted to have frequent pauses up to 5 seconds. Cardizem drip was discontinued, and the pauses continued until she converted to sinus rhythm. She had several short pauses while in sinus rhythm. She did not lose consciousness during the pauses, however she reports feeling palpitations, and strain sensations in her chest. She notes intermittent lightheadedness. No chest pain. No shortness of breath. Objective Vital Signs and I&Os Vital Signs Date Time Temp Pulse Resp B/P Pulse O2 O2 Flow FiO2 Ox Delivery Rate 03/30 935 73 130/60 03/30 0800 98.0 64 20 122/76 96 Room Air 03/30 0000 99.0 141 26 133/62 96 Room Air 03/29 1948 98.1 130 18 160/90 96 Room Air 03/29 1906 76 18 127/65 100 Room Air 03/29 1742 98.6 70 18 137/69 98 Nasal 2.0L Cannula 03/29 1713 71 18 140/74 100 Room Air 03/29 1712 105 142/74 03/29 1643 101 142/74 99 03/29 1618 89 140/91 03/29 1613 70 18 126/76 96 Room Air 03/29 1612 145 18 140/90 100 Room Air 03/29 1558 99 Room Air 03/29 1531 98.6 133 18 161/99 97 Room Air Intake & Output 03/30 1600 03/30 0800 03/30 0000 03/29 1600 03/29 0800 03/29 0000 Intake Total 200 400 500 Output Total 098 892 3584 Balance -200 -300 -600 Intake, IV 500 Intake, Oral 200 400 Output, Urine 115 905 5818 Patient 150 lb 150 lb Weight Physical Exam: Gen: NAD HEENT: normal Lungs: clear to auscultation, normal resp. effort Heart: RRR, S1, S2, no murmurs Abdomen: Soft, nontender, no masses Extremities: No clubbing, cyanosis, or edema. Neuro: Alert and oriented x 3, cranial nerves intact Current Medications: Current Medications Sig/Stella Start time Last Medication Dose Route Stop Time Status Admin Amlodipine Besylate 5 MG DAILY 03/30 1000 AC 03/30 PO 935 Apixaban 5 MG BID 03/30 1000 AC 03/30 PO 0938 Apixaban 5 MG ONCE ONE 03/29 1600 DC 03/29 PO 03/29 1601 1640 Aspirin Buffered 162 MG QPM 03/30 2200 AC PO Calcium/Vitamin D 500 MG DAILY 03/30 1000 AC 03/30 PO 0936 Diltiazem HCl 10 MG ONCE ONE 03/29 1645 DC 03/29 IV 03/29 1646 1712 Diltiazem HCl 125 MG Q24H 03/29 1645 DC 03/29 Sodium Chloride 100 ML IV 1712 Diltiazem HCl 0 .STK-MED ONE 03/29 1636 DC .ROUTE Diltiazem HCl 0 .STK-MED ONE 03/29 1547 DC .ROUTE Diltiazem HCl 10 MG ONCE ONE 03/29 1545 DC 03/29 IV 03/29 1546 1618 Enoxaparin Sodium 40 MG DAILY 03/30 1000 CAN SC Levothyroxine Sodium 0.088 MG DAILY AC 03/30 0700 AC 03/30 PO 0603 Lisinopril 40 MG 1900 03/30 1900 AC PO Lisinopril 40 MG DAILY 03/30 1000 DC PO Melatonin 3 MG ONCE ONE 03/29 2330 DC 03/29 PO 03/29 2331 2345 Multivitamins 1 TAB DAILY 03/30 1000 CAN PO Multivitamins 2 TAB QPM 03/30 2200 AC Therapeutic PO Potassium Chloride 40 MEQ ONCE ONE 03/30 0845 DC 03/30 PO 03/30 0846 0938 Results Last 48 Hrs of Labs/Mics: Laboratory Tests 03/30/16 0600: CBC w Diff Cancelled, WBC Cancelled, RBC Cancelled, Hgb Cancelled, Hct Cancelled , MCV Cancelled, MCH Cancelled, RDW Cancelled, Plt Count Cancelled, MPV Cancelled, PUBS MCHC Cancelled 03/30/16 0530: Anion Gap 8, Estimated GFR > 60, Glucose 84, Calcium 8.9, Phosphorus 4.0, Magnesium 2.1, Total Bilirubin 0.7, AST 18, ALT 32, Albumin 3.4 L, Triglycerides 58, Cholesterol 151, LDL Cholesterol, Calc 74, HDL Cholesterol 66 H, Cholesterol/HDL Ratio 2, CBC w Diff NO MAN DIFF REQ, RBC 4.08 L, MCV 92.5, MCH 30.8, RDW 13.4, MPV 9.8, Gran % 64.8, Lymphocytes % 23.7, Monocytes % 7.7, Eosinophils % 3.6, Basophils % 0.2, Absolute Granulocytes 5.0, Absolute Lymphocytes 1.8, Absolute Monocytes 0.6, Absolute Eosinophils 0.3, Absolute Basophils 0, PUBS MCHC 33.3 03/30/16 0500: Triglycerides Cancelled, Cholesterol Cancelled, LDL Cholesterol, Calc Cancelled, HDL Cholesterol Cancelled, Cholesterol/HDL Ratio Cancelled 03/30/16 0210: Troponin I 0.02 03/29/16 2210: Urine Color YEL, Urine Clarity CLEAR, Urine pH 7.5, Ur Specific [place] 1.015, Urine Protein NEG, Urine Ketones 15 H, Urine Nitrite POS H, Urine Bilirubin NEG, Urine Urobilinogen 0.2, Ur Leukocyte Esterase NEG, Ur Microscopic SEDIMENT EXAMINED, Urine RBC 5-10 H, Urine WBC 1-3 H, Ur Epithelial Cells FEW, Urine Hemoglobin MOD H, Urine Glucose NEG 03/29/16 2030: Magnesium 1.9, Troponin I 0.03 03/29/16 1544: Anion Gap 10, Estimated GFR > 60, BUN/Creatinine Ratio 21.4, Glucose 122 H, Calcium 9.5, Magnesium 2.0, Total Bilirubin 0.5, AST 26, ALT 32, Alkaline Phosphatase 66, Troponin I 0.02, Total Protein 7.0, Albumin 4.3, Globulin 2.7, Albumin/Globulin Ratio 1.6, TSH &T3 &Free T4 Intrp 1.210, PT 12.7 H, INR 1.21 H, APTT 30, CBC w Diff NO MAN DIFF REQ, RBC 4.94, MCV 92.4, MCH 30.9, RDW 13.5, MPV 9.8, Gran % 70.2, Lymphocytes % 22.2, Monocytes % 6.0, Eosinophils % 1.2, Basophils % 0.4, Absolute Granulocytes 5.1, Absolute Lymphocytes 1.6, Absolute Monocytes 0.4, Absolute Eosinophils 0.1, Absolute Basophils 0, PUBS MCHC 33.5 Assessment/Plan Assessment/Plan Assessment: 1. Hypertension 2. Paroxysmal atrial fibrillation with rapid ventricular rate 3. Tachy-han syndrome, frequent pauses up to 5 seconds noted. Plan: * Continue to monitor on telemetry * Nothing by mouth after midnight for possible permanent pacemaker placement. * Discontinue Eliquis possible permanent pacemaker placement * Treat with IV heparin while off Eliquis * Keep off all rate control medications and antiarrhythmic medications given the prolonged pauses after treatment with diltiazem Continue telemetry? Yes
[2016-03-30 16:00] VITALS: BP 110/78
[2016-03-30 22:00] VITALS: BP 134/71
--- NOTE | 2016-03-31 00:35 | NUR ---
PT A/O X 3 VERY ANXIOUS ABOUT PACEMAKER AND MEDICAL CONDITION SEEN EARLIER BY DR BEACH WHO EXPLAINED NEED FOR IV HEPARIN. DR CHAVEZ DISCUSSED NEED FOR HEPARIN BOLUS, NOT GIVEN ORDERED HEPARIN GTT STARTED AT 2100 AT 18 U/KG/H.WENT INTO AFIB WITH CONTROLLED RESPONCE AT [address] CHAVEZ NOTIFIED. MELATONIN GIVEN FOR SLEEP NPO AFTER MIDNIGHT PT AWARE
[2016-03-31 03:50] LABS: ABSOLUTE BASOPHIL COUNT 0 /CUMM (0.0-0.2); ABSOLUTE EOSINOPHIL COUNT 0.4 /CUMM (0.0-0.7); ABSOLUTE LYMPH COUNT 2.3 /CUMM (1.2-3.4); ABSOLUTE MONOCYTE COUNT 0.5 /CUMM (0.10-0.60); BASOPHIL % 0.6 % (0.0-2.0); EOSINOPHIL % 6.3 % (0-5); GRANULOCYTE % 47.3 % (42.2-75.2); HEMATOCRIT 38.3 % (37-47); MEAN CORPUSCULAR HGB 30.7 PG (27.0-31.0); MEAN CORPUSCULAR HGB CONC 33.2 G/DL (33.0-37.0); MEAN CORPUSCULAR VOLUME 92.6 FL (81.0-99.0); MEAN PLATELET VOLUME 9.5 FL (7.4-10.4); PLATELET COUNT 182 /CUMM (130-400); RBC DISTRIBUTION WIDTH 13.8 % (11.5-14.5); RED BLOOD CELL CT 4.14 /CUMM (4.20-5.40); WHITE BLOOD CELL COUNT 6.3 /CUMM (4.8-10.8)
[2016-03-31 04:11] LABS: PTT > 120 SEC (25-37)
--- NOTE | 2016-03-31 06:32 | NUR ---
MONITOR : SEVERE BRADYCARDIA HEART RATE BRIEFLY TO 10, AF WITH 7 SEC PAUSE FOLLOWED BY SINUS BEAT THEN ANOTHER 5 SECOND PAUSE TO SBRADY FOR A FEW BEATS THEN BACK TO AFIB 60-80.VSS PT SLEEPING EAISLY AWAKENED DR CHAVEZ AND DR NG AWARE.
[2016-03-31 08:00] VITALS: BP 98/54
--- NOTE | 2016-03-31 08:24 | PN- Resident CRCU ---
Subjective HPI/CRCU Issues: Patient was seen and examined. She is laying on bed looks relaxed and comfortable. Patient is on A. fib now. She had multiple episodes of pauses, with the longest one being around 9 seconds. Pauses happened, with out any rate control medication. Patient denies chest pain, palpitation, or dizziness. Objective Vital Signs & I&O Last 8 Hrs of Vitals and I&O: Intake & Output 03/31 1600 03/31 0800 03/31 0000 Intake Total 180 1034 Output Total 600 400 Balance -420 634 Intake, IV 180 54 Intake, Oral 980 Output, Urine 600 400 Laboratory Tests 03/31 03/30 0330 1610 Chemistry Sodium (137 - 145 mmol/L) 140 142 Potassium (3.5 - 5.1 mmol/L) 3.9 4.4 Chloride (98 - 107 mmol/L) 108 H 108 H Carbon Dioxide (22 - 30 mmol/L) 26 24 Anion Gap (5 - 16) 6 10 BUN (7 - 17 mg/dL) 14 14 Creatinine (0.5 - 1.0 mg/dL) 0.6 0.7 Estimated GFR (>60 ml/min) > 60 > 60 Glucose (65 - 99 mg/dL) 84 91 Calcium (8.4 - 10.2 mg/dL) 9.1 9.7 Phosphorus (2.5 - 4.5 mg/dL) 3.6 3.0 Magnesium (1.6 - 2.3 mg/dL) 2.1 2.1 Total Bilirubin (0.2 - 1.3 mg/dL) 0.5 0.5 AST (14 - 36 U/L) 17 19 ALT (9 - 52 U/L) 44 32 Troponin I (< 0.11 ng/ml) < 0.01 Albumin (3.5 - 5.0 g/dL) 3.4 L 3.8 Coagulation APTT (25 - 37 SEC) > 120 *H Hematology CBC w Diff NO MAN DIFF REQ WBC (4.8 - 10.8 /CUMM) 6.3 RBC (4.20 - 5.40 /CUMM) 4.14 L Hgb (12.0 - 16.0 G/DL) 12.7 Hct (37 - 47 %) 38.3 MCV (81.0 - 99.0 FL) 92.6 MCH (27.0 - 31.0 PG) 30.7 RDW (11.5 - 14.5 %) 13.8 Plt Count (130 - 400 /CUMM) 182 MPV (7.4 - 10.4 FL) 9.5 Gran % (42.2 - 75.2 %) 47.3 Lymphocytes % (20.5 - 51.1 %) 37.2 Monocytes % (1.7 - 9.3 %) 8.6 Eosinophils % (0 - 5 %) 6.3 H Basophils % (0.0 - 2.0 %) 0.6 Absolute Granulocytes (1.4 - 6.5 /CUMM) 3.0 Absolute Lymphocytes (1.2 - 3.4 /CUMM) 2.3 Absolute Monocytes (0.10 - 0.60 /CUMM) 0.5 Absolute Eosinophils (0.0 - 0.7 /CUMM) 0.4 Absolute Basophils (0.0 - 0.2 /CUMM) 0 PUBS MCHC (33.0 - 37.0 G/DL) 33.2 Exam General Appearance: well developed/nourished, no apparent distress, alert, awake , comfortable Head: atraumatic, normal appearance Neck: supple, No JVD Respiratory: normal breath sounds, chest non-tender, no respiratory distress, quiet respiration, lungs clear Cardiovascular: irregularly irregular Gastrointestinal: soft, non-tender, increase BS Extremities: no edema Current Medications: Current Medications Sig/Stella Start time Last Medication Dose Route Stop Time Status Admin Amlodipine Besylate 5 MG DAILY 03/30 1000 AC 03/30 PO 0936 Apixaban 5 MG BID 03/30 1000 DC 03/30 PO 0938 Aspirin Buffered 162 MG QPM 03/30 2200 AC 03/30 PO 2120 Calcium/Vitamin D 500 MG DAILY 03/30 1000 AC 03/30 PO 0936 Heparin Sodium 25,000 UNIT Q24H 03/30 2100 AC 03/30 (Porcine) IV 2109 Sodium Chloride 500 ML Levothyroxine Sodium 0.088 MG DAILY AC 03/30 0700 AC 03/31 PO 0647 Lisinopril 40 MG 1900 03/30 1900 AC 03/30 PO 2120 Lisinopril 40 MG DAILY 03/30 1000 DC PO Lorazepam 0.5 MG ONCE ONE 03/30 1430 DC 03/30 IV 03/30 1431 1501 Melatonin 3 MG ONCE ONE 03/30 2300 DC 03/30 PO 03/30 2301 2307 Multivitamins 2 TAB QPM 03/30 2200 AC 03/30 Therapeutic PO 2121 Potassium Chloride 40 MEQ ONCE ONE 03/31 0800 DC PO 03/31 0801 Impression/Plan Impression/Problem List Impression: Problem list along with assessment and plan. #A fib Patient presented with Greer zhu, Intially patient was started on iv cardizem drip for rate control, however she continued to have sinus pauses that symptomatic and more than 5 seconds, because of this cardizem drip and all other rate control medication was DC'd. Patient spontaneously converted back to normal sinus rhythm. ACS was ruled out. * Patient will will for pacemaker later his morning * She is on heparin since yesterday * All electrolytes are with acceptable range #H/o hypothyroidism TFT's within normal limit * Continue home dose of levothyroxine. #Hypertension Continue home medication including * amlodipine 5mg * lisinorpil 40 mg FC dvt px : Heparin Nothing by mouth until she comes back from pacemaker implantation Problem List: 1. Rapid atrial fibrillation Pain Ratin Tomorrow's Labs & Rationales: cbc and icu bundle Plan DVT/Prophylaxis: mechanical, pharmacological
[2016-03-31 11:14] LABS: PTT > 120 SEC (25-37)
--- NOTE | 2016-03-31 11:21 | ECHOCARDIOGRAM REPORT ---
RYLIE ADHIKARI Age: 70 : 1945 Gender: F Exam Date: 03/30/2016 08:22 Exam Location: [facility] Ht (in): 66 Wt (lb): 150 BSA: 1.79 BP: 133 / 62 Ordering Physician: PAULINO KNOX MD Referring Physician: Maurice Miramontes MD Technologist: Melly Donovan [facility] Room Number: [id number] Indications: AFIB/FLUTTER Rhythm: Sinus Technical Quality: Fair FINDINGS Left Ventricle Normal size left ventricle. Borderline to mild concentricleft ventricular hypertrophy. No obvious regional wall motion abnormalities. Normal left ventricular ejection fraction visually estimated at >65%. Normal left ventricular diastolic filling pattern for age. Right Ventricle Normal right ventricular size and function. Right Atrium Normal right atrial size. Left Atrium Left atrial size at the upper limits of normal. Mitral Valve Mild mitral annular calcification. Mitral valve mildly thickened. Mild mitral regurgitation. Aortic Valve Trileaflet aortic valve. Mild aortic sclerosis. No aortic valve stenosis or regurgitation. Tricuspid Valve Structurally normal tricuspid valve. Mild tricuspid regurgitation. Mild pulmonary hypertension. Right ventricular systolic pressure estimated to be elevated at 44 mmHg. Pulmonic Valve Pulmonic valve not well visualized, grossly normal. No pulmonic regurgitation. Pericardium No pericardial effusion. Great Vessels Normal size aortic root. Normal size inferior vena cava. CONCLUSIONS Normal size left ventricle. Borderline to mild concentricleft ventricular hypertrophy. Normal left ventricular ejection fraction visually estimated at > 65%. Normal left ventricular diastolic filling pattern for age. Normal right ventricular size and function. Normal right atrial size. Left atrial size at the upper limits of normal. Mild mitral regurgitation. Mild tricuspid regurgitation. Mild pulmonary hypertension. Maurice Miramontes M.D. (Electronically Signed) Final Date: 31 March 2016 11:21 MEASUREMENTS (Male / Female) Normal Values 2D ECHO LV Diastolic Diameter PLAX 4.5 cm 4.2 - 5.9 / 3.9 - 5.3 cm LV Systolic Diameter PLAX 2.7 cm 2.1 - 4.0 cm LV Fractional Shortening PLAX 40.0 % 25 - 46 % LV Ejection Fraction 2D Teich 70.8 % IVS Diastolic Thickness 0.9 cm LVPW Diastolic Thickness 1.2 cm LV Relative Wall Thickness 0.5 RV Internal Dim ED PLAX 2.5 cm 1.9 - 3.8 cm LVOT Diameter 2.0 cm Aortic Root Diameter 3.0 cm LA Systolic Diameter LX 3.5 cm 3.0 - 4.0 / 2.7 - 3.8 cm LA Volume 40.0 cm 18 - 58 / 22 - 52 cm Ascending Aorta Diameter 3.0 cm DOPPLER AV Peak Velocity 135.0 cm/s AV Peak Gradient 7.3 mmHg AV Mean Velocity 93.4 cm/s AV Mean Gradient 4.0 mmHg AV Velocity Time Integral 30.1 cm LVOT Peak Velocity 94.7 cm/s LVOT Peak Gradient 3.6 mmHg LVOT Mean Velocity 64.6 cm/s LVOT Mean Gradient 2.0 mmHg LVOT Velocity Time Integral 22.5 cm LVOT Stroke Volume 70.7 cm AV Area Cont Eq vti 2.3 cm AV Area Cont Eq pk 2.2 cm MV Peak Velocity 85.8 cm/s MV Peak Gradient 2.9 mmHg MV Mean Velocity 50.6 cm/s MV Mean Gradient 1.0 mmHg Mitral E Point Velocity 80.0 cm/s Mitral A Point Velocity 49.4 cm/s Mitral E to A Ratio 1.6 MV PHT Velocity 93.9 cm/s MV Deceleration Mccormick 286.0 cm/s MV Pressure Half Time 98.5 ms MV Area PHT 2.2 cm MV Deceleration Time 187.0 ms TR Peak Velocity 314.0 cm/s TR Peak Gradient 39.4 mmHg Right Atrial Pressure 5.0 mmHg Pulmonary Artery Systolic Pressu 44.4 mmHg Right Ventricular Systolic Press 44.4 mmHg PV Peak Velocity 78.5 cm/s PV Peak Gradient 2.5 mmHg PV Mean Velocity 60.6 cm/s PV Mean Gradient 2.0 mmHg PV Velocity Time Integral 20.7 cm LV E' Lateral Velocity 10.4 cm/s Mitral E to LV E' Lateral Ratio 7.7 LV E' Septal Velocity 5.5 cm/s Mitral E to LV E' Septal Ratio 14.7
--- NOTE | 2016-03-31 11:36 | PN- Cardiology ---
Subjective Subjective: No complaints. Back in sinus rhythm with intermittent significant symptomatic bradycardia/ pauses. Objective Vital Signs and I&Os Vital Signs Date Time Temp Pulse Resp B/P Pulse O2 O2 Flow FiO2 Ox Delivery Rate 03/31 1019 93 125/97 03/31 0800 95 Room Air 03/31 0800 98.1 89 28 98/54 94 Room Air Room Air 03/30 2200 99.3 63 18 134/71 94 Room Air 03/30 2120 67 138/70 03/30 1600 98.4 130 18 110/78 97 Room Air Intake & Output 03/31 1600 03/31 0800 03/31 0000 03/30 1600 03/30 0800 03/30 0000 Intake Total 180 1034 760 200 400 Output Total 600 400 500 400 700 Balance -420 634 260 -200 -300 Intake, IV 180 54 Intake, Oral 980 760 200 400 Number 1 Bowel Movements Output, Urine 600 400 500 400 700 Patient 150 lb Weight Physical Exam: Well-developed, well-nourished elderly female in no acute distress with nasal oxygen in place. Vital signs: See above. Neck: No JVD, no bruits. Lungs: Clear to auscultation bilaterally. Heart: S1, S2 (regular) with no murmur, gallop, or rub appreciated. Abdomen: Soft, nontender, positive bowel sounds. Extremities: No edema. Current Medications: Current Medications Sig/Stella Start time Last Medication Dose Route Stop Time Status Admin Amlodipine Besylate 5 MG DAILY 03/30 1000 AC 03/30 PO 0936 Apixaban 5 MG BID 03/30 1000 DC 03/30 PO 0938 Aspirin Buffered 162 MG QPM 03/30 2200 AC 03/30 PO 2120 Calcium/Vitamin D 500 MG DAILY 03/30 1000 AC 03/31 PO 1017 Heparin Sodium 25,000 UNIT Q24H 03/30 2100 AC 03/30 (Porcine) IV 2109 Sodium Chloride 500 ML Levothyroxine Sodium 0.088 MG DAILY AC 03/30 0700 AC 03/31 PO 0647 Lisinopril 40 MG 1900 03/30 1900 AC 03/30 PO 2120 Lorazepam 0.5 MG ONCE ONE 03/30 1430 DC 03/30 IV 03/30 1431 1501 Melatonin 3 MG ONCE ONE 03/30 2300 DC 03/30 PO 03/30 2301 2307 Multivitamins 2 TAB QPM 03/30 2200 AC 03/30 Therapeutic PO 2121 Potassium Chloride 40 MEQ ONCE ONE 03/31 0800 DC 03/31 PO 03/31 0801 1017 Results Last 48 Hrs of Labs/Mics: Laboratory Tests 03/31/16 1020: APTT > 120 *H 03/31/16 0330: Anion Gap 6, Estimated GFR > 60, Glucose 84, Calcium 9.1, Phosphorus 3.6, Magnesium 2.1, Total Bilirubin 0.5, AST 17, ALT 44, Albumin 3.4 L, APTT > 120 * H, CBC w Diff NO MAN DIFF REQ, RBC 4.14 L, MCV 92.6, MCH 30.7, RDW 13.8, MPV 9.5, Gran % 47.3, Lymphocytes % 37.2, Monocytes % 8.6, Eosinophils % 6.3 H, Basophils % 0.6, Absolute Granulocytes 3.0, Absolute Lymphocytes 2.3, Absolute Monocytes 0.5, Absolute Eosinophils 0.4, Absolute Basophils 0, PUBS MCHC 33.2 03/30/16 1610: Anion Gap 10, Estimated GFR > 60, Glucose 91, Calcium 9.7, Phosphorus 3.0, Magnesium 2.1, Total Bilirubin 0.5, AST 19, ALT 32, Troponin I < 0.01, Albumin 3.8 03/30/16 0600: CBC w Diff Cancelled, WBC Cancelled, RBC Cancelled, Hgb Cancelled, Hct Cancelled , MCV Cancelled, MCH Cancelled, RDW Cancelled, Plt Count Cancelled, MPV Cancelled, PUBS MCHC Cancelled 03/30/16 0530: Anion Gap 8, Estimated GFR > 60, Glucose 84, Calcium 8.9, Phosphorus 4.0, Magnesium 2.1, Total Bilirubin 0.7, AST 18, ALT 32, Albumin 3.4 L, Triglycerides 58, Cholesterol 151, LDL Cholesterol, Calc 74, HDL Cholesterol 66 H, Cholesterol/HDL Ratio 2, CBC w Diff NO MAN DIFF REQ, RBC 4.08 L, MCV 92.5, MCH 30.8, RDW 13.4, MPV 9.8, Gran % 64.8, Lymphocytes % 23.7, Monocytes % 7.7, Eosinophils % 3.6, Basophils % 0.2, Absolute Granulocytes 5.0, Absolute Lymphocytes 1.8, Absolute Monocytes 0.6, Absolute Eosinophils 0.3, Absolute Basophils 0, PUBS MCHC 33.3 03/30/16 0500: Triglycerides Cancelled, Cholesterol Cancelled, LDL Cholesterol, Calc Cancelled, HDL Cholesterol Cancelled, Cholesterol/HDL Ratio Cancelled 03/30/16 0210: Troponin I 0.02 03/29/16 2210: Urine Color YEL, Urine Clarity CLEAR, Urine pH 7.5, Ur Specific [place] 1.015, Urine Protein NEG, Urine Ketones 15 H, Urine Nitrite POS H, Urine Bilirubin NEG, Urine Urobilinogen 0.2, Ur Leukocyte Esterase NEG, Ur Microscopic SEDIMENT EXAMINED, Urine RBC 5-10 H, Urine WBC 1-3 H, Ur Epithelial Cells FEW, Urine Hemoglobin MOD H, Urine Glucose NEG 03/29/16 2030: Magnesium 1.9, Troponin I 0.03 03/29/16 1544: Anion Gap 10, Estimated GFR > 60, BUN/Creatinine Ratio 21.4, Glucose 122 H, Calcium 9.5, Magnesium 2.0, Total Bilirubin 0.5, AST 26, ALT 32, Alkaline Phosphatase 66, Troponin I 0.02, Total Protein 7.0, Albumin 4.3, Globulin 2.7, Albumin/Globulin Ratio 1.6, TSH &T3 &Free T4 Intrp 1.210, PT 12.7 H, INR 1.21 H, APTT 30, CBC w Diff NO MAN DIFF REQ, RBC 4.94, MCV 92.4, MCH 30.9, RDW 13.5, MPV 9.8, Gran % 70.2, Lymphocytes % 22.2, Monocytes % 6.0, Eosinophils % 1.2, Basophils % 0.4, Absolute Granulocytes 5.1, Absolute Lymphocytes 1.6, Absolute Monocytes 0.4, Absolute Eosinophils 0.1, Absolute Basophils 0, PUBS MCHC 33.5 Microbiology 03/29 2299 UPPER RESP: Surveillance Culture - COMP Recent Imaging Studies: Echocardiogram (03/30/2016) Normal size left ventricle. Borderline to mild concentricleft ventricular hypertrophy. Normal left ventricular ejection fraction visually estimated at >65%. Normal left ventricular diastolic filling pattern for age. Normal right ventricular size and function. Normal right atrial size. Left atrial size at the upper limits of normal. Mild mitral regurgitation. Mild tricuspid regurgitation. Mild pulmonary hypertension. Assessment/Plan Assessment/Plan Mrs. Boyd is an elderly returned to the ED with her second documented episode of atrial fibrillation and converted back to sinus rhythm with significant symptomatic bradycardia/pauses. She has sick sinus syndrome and would benefit from permanent pacemaker implantation to protect her from significant bradycardia/pauses while we are treating the rapid ventricular response rates to her paroxysmal atrial fibrillation. As she has now had a second documented episode of atrial fibrillation and has a [id number] Score of 3 we will maintain her on full long-term anticoagulation of her nonvalvular atrial fibrillation after the permanent pacemaker is implanted. Discussed the situation with our pacemaker specialist (Ramon Hernandez M.D., PhD) and the plan is for permanent pacemaker implantation later today. Continue telemetry? Yes
--- NOTE | 2016-03-31 11:36 | NUR ---
PTT > 120, PER DR CODY, PUT HEPARIN ON HOLD, PT TO GO TO OR AT 3PM FOR PPACEMAKER.
[2016-03-31 15:18] VITALS: BP 120/66
--- NOTE | 2016-03-31 16:00 | NUR ---
PT TO OR AT 1530 FOR PACEMAKER PLACEMENT
--- NOTE | 2016-03-31 18:44 | RADIOLOGY REPORT ---
EXAMINATION: XR PORTABLE CHEST CLINICAL INFORMATION: Post PPM placement COMPARISON: Chest x-ray 03/02/2016 TECHNIQUE: Portable AP portable view of the chest was obtained. 5:47 PM FINDINGS: Dual-lead pacemaker present with a lead in right atrium and right ventricle. There is a focal parenchymal infiltrate in the left upper lobe at the left lung apex that is new since prior chest x-ray. The right lung is clear. No significant pulmonary vascular congestion. No pleural effusion. No pneumothorax. IMPRESSION: 1. Placement of pacemaker in good position with leads in right atrium and right ventricle. 2. New focal infiltrate in left upper lobe.
--- NOTE | 2016-03-31 18:57 | NUR ---
PT BACK FROM OR W W PACER AT 1840. A/O, NSR 60'S ON THE MONITOR. BP 137/70. PO LISINOPRIL GIVEN. PT STARTED ON REGULAR DIET, TOLERATED WELL. DRESSING TO W IS C/D/I. L ARM IN SLING. PT STATES PAIN IS 0/10.
--- NOTE | 2016-03-31 21:06 | NUR ---
ATTEMPTED TO WEAN PT OFF 2LNC, PT DESATED TO 89-90%, FINE CRACKLES AUSCULTATED, PT WITH NO C/O SOB OR DISTRESS, IST GIVEN TO PT. PLACED BACK ON 1LNC SAT AT 93-94%. NOTIFIED MD JADIEL CHAVEZ. NO FURTHER ORDERS AT THIS TIME.
[2016-03-31 23:45] VITALS: BP 122/74
--- NOTE | 2016-04-01 01:38 | NUR ---
PT EXPRESSING THAT SHE FEELS HER BREATHING IS DIFFERENT SINCE AFTER PACEMAKER PLACEMENT. PT ON 1LNC SAT 94-96%, LUNGS SCANT CRACKLES ON R AND LEFT LOWER LOBE. ALL OTHER VITALS STABLE. NOTIFIED MD JADIEL CHAVEZ #[id number]. TO BEDSIDE TO ASSESS PT.
[2016-04-01 05:23] LABS: ABSOLUTE BASOPHIL COUNT 0 /CUMM (0.0-0.2); ABSOLUTE EOSINOPHIL COUNT 0.3 /CUMM (0.0-0.7); ABSOLUTE GRANULOCYTE CT 4.8 /CUMM (1.4-6.5); ABSOLUTE LYMPH COUNT 1.3 /CUMM (1.2-3.4); ABSOLUTE MONOCYTE COUNT 0.4 /CUMM (0.10-0.60); BASOPHIL % 0.4 % (0.0-2.0); EOSINOPHIL % 4.3 % (0-5); GRANULOCYTE % 69.3 % (42.2-75.2); HEMATOCRIT 33.6 % (37-47); MEAN CORPUSCULAR HGB CONC 33.7 G/DL (33.0-37.0); MEAN PLATELET VOLUME 10.4 FL (7.4-10.4); PLATELET COUNT 159 /CUMM (130-400); RBC DISTRIBUTION WIDTH 13.4 % (11.5-14.5); RED BLOOD CELL CT 3.65 /CUMM (4.20-5.40); WHITE BLOOD CELL COUNT 6.9 /CUMM (4.8-10.8)
--- NOTE | 2016-04-01 06:59 | PN- Resident CRCU ---
Subjective HPI/CRCU Issues: Pacemaker was successfully placed yesterday without complications. Placement was confirmed by CXR. Patient has been in sinus rhythm post-procedure. She complained that her breathing was different after pacemaker placement and endorsed anxiety which improved after 0.5 mg of PO Ativan. Patient seen and examined this morning. She is sleeping comfortably in bed but is arousable. She reports feeling well and denies difficulty breathing or palpitations. She endorses mild discomfort at the surgical site. Objective Vital Signs & I&O Last 8 Hrs of Vitals and I&O: Vital Signs Date Time Temp Pulse Resp B/P Pulse O2 O2 Flow FiO2 Ox Delivery Rate 04/01 0800 95 Room Air 04/01 0800 97.4 59 16 108/60 97 Room Air Room Air 04/01 0400 95 Nasal 1.0L Cannula 04/01 0000 94 Nasal 1.0L Cannula 03/31 2345 98.2 62 16 122/74 94 Nasal 1.0L Cannula 03/31 2000 93 Nasal 1.0L Cannula 03/31 1853 65 139/70 03/31 1600 94 Room Air 03/31 1518 97.9 70 31 120/66 94 Room Air Room Air 03/31 1200 94 Room Air 03/31 1019 93 125/97 Exam General Appearance: well developed/nourished, no apparent distress, alert, awake , comfortable Ears, Nose, Throat: moist mucus membranes Respiratory: clear to ausculation bilaterally Cardiovascular: regular rate/rhythm, normal S1 and S2, no murmurs, rubs or gallops Gastrointestinal: soft, non-tender, non-distended, positive bowel sounds Extremities: no edema Cranial Nerves: no gross focal deficits noted Skin: intact, normal color, warm/dry Current Medications: Current Medications Sig/Stella Start time Last Medication Dose Route Stop Time Status Admin Acetaminophen 650 MG ONCE ONE 04/01 0030 DC 04/01 PO 04/01 0031 0018 Acetaminophen 1,000 MG .STK-MED ONE 03/31 1515 DC IV 03/31 1516 Alprazolam 0.5 MG ONCE ONE 04/01 0200 DC 04/01 PO 04/01 0201 0200 Amlodipine Besylate 5 MG DAILY 03/30 1000 AC 03/30 PO 0936 Aspirin Buffered 162 MG QPM 03/30 2200 AC 03/31 PO 2149 Calcium/Vitamin D 500 MG DAILY 03/30 1000 AC 03/31 PO 1017 Fentanyl Citrate 200 MCG .STK-MED ONE 03/31 1515 DC IM 03/31 1516 Heparin Sodium 25,000 UNIT Q24H 03/30 2100 DC 03/30 (Porcine) IV 2109 Sodium Chloride 500 ML Levothyroxine Sodium 0.088 MG DAILY AC 03/30 0700 AC 04/01 PO 0640 Lisinopril 40 MG 1900 03/30 1900 AC 03/31 PO 1853 Magnesium Oxide 400 MG ONE ONE 04/01 0800 DC PO 04/01 0801 Melatonin 3 MG ONCE ONE 03/31 2044 DC 03/31 PO 03/31 Midazolam HCl 2 MG .STK-MED ONE 03/31 1515 DC IM 03/31 1516 Multivitamins 2 TAB QPM 03/30 2199 AC 03/31 Therapeutic PO 2149 Results Results: Laboratory Tests 04/01 03/31 0430 1020 Chemistry Sodium (137 - 145 mmol/L) 135 L Potassium (3.5 - 5.1 mmol/L) 4.6 Chloride (98 - 107 mmol/L) 105 Carbon Dioxide (22 - 30 mmol/L) 23 Anion Gap (5 - 16) 7 BUN (7 - 17 mg/dL) 20 H Creatinine (0.5 - 1.0 mg/dL) 0.7 Estimated GFR (>60 ml/min) > 60 Glucose (65 - 99 mg/dL) 66 Calcium (8.4 - 10.2 mg/dL) 8.9 Phosphorus (2.5 - 4.5 mg/dL) 4.9 H Magnesium (1.6 - 2.3 mg/dL) 1.8 Total Bilirubin (0.2 - 1.3 mg/dL) 0.5 AST (14 - 36 U/L) 17 ALT (9 - 52 U/L) 29 Albumin (3.5 - 5.0 g/dL) 2.9 L Coagulation APTT (25 - 37 SEC) > 120 *H Hematology CBC w Diff NO MAN DIFF REQ WBC (4.8 - 10.8 /CUMM) 6.9 RBC (4.20 - 5.40 /CUMM) 3.65 L Hgb (12.0 - 16.0 G/DL) 11.3 L Hct (37 - 47 %) 33.6 L MCV (81.0 - 99.0 FL) 92.0 MCH (27.0 - 31.0 PG) 31.0 RDW (11.5 - 14.5 %) 13.4 Plt Count (130 - 400 /CUMM) 159 MPV (7.4 - 10.4 FL) 10.4 Gran % (42.2 - 75.2 %) 69.3 Lymphocytes % (20.5 - 51.1 %) 19.5 L Monocytes % (1.7 - 9.3 %) 6.5 Eosinophils % (0 - 5 %) 4.3 Basophils % (0.0 - 2.0 %) 0.4 Absolute Granulocytes (1.4 - 6.5 /CUMM) 4.8 Absolute Lymphocytes (1.2 - 3.4 /CUMM) 1.3 Absolute Monocytes (0.10 - 0.60 /CUMM) 0.4 Absolute Eosinophils (0.0 - 0.7 /CUMM) 0.3 Absolute Basophils (0.0 - 0.2 /CUMM) 0 PUBS MCHC (33.0 - 37.0 G/DL) 33.7 CXR Findings: 1. Placement of pacemaker in good position with leads in right atrium and right ventricle. 2. New focal infiltrate in left upper lobe. Impression/Plan Impression/Problem List Impression: 70 y/o F with PMHx of paroxysmal atrial fibrillation and HTN who is admitted for atrial fibrillaton with rapid ventricular response s/p pacemaker placement for tachy-han syndrome with frequent symptomatic pauses. Problem List: 1. Sick sinus syndrome 2. S/P placement of cardiac pacemaker 3. Tachy-han syndrome 4. Paroxysmal atrial fibrillation with rapid ventricular response 5. Hypertension 6. Hypothyroidism Pain Ratin Tomorrow's Labs & Rationales: CBC for post-operative monitoring of H/H s/p pacemaker placement BMP and Mg to monitor lytes and kidney function in the setting of downtrending Na Plan Respiratory: No shortness of breath or respiratory distress. Was placed on 1 L of oxygen by MA post-pacemaker placement but currently off oxygen and satting well on room air. * Provide supplemental oxygen as needed to keep SpO2 > 92%. Infectious Diseases: Although CXR post-pacemaker placement is with new focal infiltrate in the left upper lobe, pneumonia is unlikely as patient is afebrile, without leukocytosis, cough or shortness of breath. * Continue to monitor for signs/symptoms of infection. Cardiovascular: #Tachy-han syndrome: In the setting of paroxysmal atrial fibrillation with rapid ventricular response. With frequent symptomatic bradycardia/pauses this admission, as well as an episode of asystole. Pacemaker successfully placed yesterday, endorses some discomfort at the site. Has been in normal sinus rhythm since pacemaker placement. * Cardiology following. Appreciate their recs. * Continue to monitor on telemetry. * Sotalol 80 mg PO BID started. * Percocet 1 tab PO Q6H for moderate pain (scale 4-6) and 2 tabs PO Q6H PRN for severe pain (scale 7-10). #Atrial fibrillation: IV heparin discontinued last night for pacemaker placement. Per cardiology, patient may potentially stay in sinus rhythm with anti-arrhythmic therapy, thus avoiding the need for chronic anti-coagulation. * Aspirin decreased to 81 mg PO QD. #HTN: Takes amlodipine 5 mg PO QD and lisinopril 40 mg PO QD. * Amlodipine stopped to prevent hypotension in the setting of recently initiated sotalol therapy. * Continue kyeah-oy-megtdtrid lisinopril. Hematology: Hgb down to 11.3 from 12.7 most likely secondary to operative blood loss. * Continue to monitor H/H. Metabolic: #Hypothyroidism: * Continue [id number]-jylbczhrs levothyroxine 88 mcg PO AC. Alimentary: Heart healthy diet Neurological: AAO x3. No issues. Skin: No issues. DVT/Prophylaxis: mechanical, pharmacological Code Status: Full Code No issues. DVT/Prophylaxis: mechanical, pharmacological Code Status: Full Code
[2016-04-01 08:00] VITALS: BP 108/60
--- NOTE | 2016-04-01 08:41 | RADIOLOGY REPORT ---
EXAMINATION:\H\ \N\XR CHEST CLINICAL INFORMATION: Cardiac pacemaker placement. COMPARISON: CXR, 03/02/2016 TECHNIQUE: C-arm fluoroscopic imaging of the chest was utilized intraoperatively and six spot fluoroscopy images of the chest are submitted into the electronic picture archive. FLUOROSCOPY TIME: 3 minutes. FINDINGS: The fluoroscopic images show placement of a left prepectoral cardiac pacemaker with transvenous leads extending to the right atrium and right ventricle. IMPRESSION: Fluoroscopic imaging assistance was provided for cardiac pacemaker insertion.
--- NOTE | 2016-04-01 15:03 | PN- Cardiology ---
Subjective Subjective: * Patient is doing well s/p pacemaker placement. * currently in a sinus rhythm with demand pacing * Chest X-ray is suspicious for a left upper lobe infiltrate without cough, shortness of breath, fever or increased WBC. No pneumothorax. Objective Vital Signs and I&Os Vital Signs Date Time Temp Pulse Resp B/P Pulse O2 O2 Flow FiO2 Ox Delivery Rate 04/01 1200 94 Room Air 04/01 1025 66 114/56 04/01 0800 95 Room Air 04/01 0800 97.4 59 16 108/60 97 Room Air Room Air 04/01 0400 95 Nasal 1.0L Cannula 04/01 0000 94 Nasal 1.0L Cannula 03/31 2345 98.2 62 16 122/74 94 Nasal 1.0L Cannula 03/31 2000 93 Nasal 1.0L Cannula 03/31 1853 65 139/70 03/31 1600 94 Room Air 03/31 1518 97.9 70 31 120/66 94 Room Air Room Air Intake & Output 04/01 1600 04/01 0800 04/01 0000 03/31 1600 03/31 0800 03/31 0000 Intake Total 360 600 480 690 780 8719 Output Total 600 300 300 600 400 Balance -240 300 480 -174 -420 634 Intake, IV 0 0 96 180 54 Intake, Oral 360 600 480 30 980 Number 0 0 0 0 Bowel Movements Output, Urine 600 300 300 600 400 Patient 150 lb Weight Physical Exam: General: WD/ WN female in NAD; alert and oriented x 3 Neck: no JVD Heart: RRR w/o murmur Lungs: clear Chest: pacer site is clean and dry without evidence of hematoma Ext: no edema Assessment/Plan Assessment/Plan * This patient is doing well following pacer placement except for some soreness over the pacer site. Begin Percocet 1-2 tabs PRN for pain. * This patient has normal atrial size without any significant valvular disease. She may potentially stay in sinus rhythm with the help of an antiarrhythmic and therby avoid the need for chronic anticoagulation. She has normal renal function. Begin Sotolol 80mg PO BID. Stop Norvasc so that her BP does not drop. Monitor on telemetry for 24 hours. Begin aspirin 81mg daily. Continue telemetry? Yes
[2016-04-01 16:00] VITALS: BP 137/67
[2016-04-01 23:41] VITALS: BP 128/74
[2016-04-02] VITALS (9 sets, daily range): BP systolic 76–150; BP diastolic 0–90
[2016-04-02 06:12] LABS: ABSOLUTE BASOPHIL COUNT 0 /CUMM (0.0-0.2); ABSOLUTE EOSINOPHIL COUNT 0.2 /CUMM (0.0-0.7); ABSOLUTE GRANULOCYTE CT 5.2 /CUMM (1.4-6.5); ABSOLUTE LYMPH COUNT 1.6 /CUMM (1.2-3.4); ABSOLUTE MONOCYTE COUNT 0.5 /CUMM (0.10-0.60); BASOPHIL % 0.4 % (0.0-2.0); EOSINOPHIL % 3.1 % (0-5); GRANULOCYTE % 68.4 % (42.2-75.2); HEMATOCRIT 36.6 % (37-47); MEAN CORPUSCULAR HGB 31.5 PG (27.0-31.0); MEAN CORPUSCULAR HGB CONC 34.2 G/DL (33.0-37.0); MEAN CORPUSCULAR VOLUME 92.2 FL (81.0-99.0); MEAN PLATELET VOLUME 10.2 FL (7.4-10.4); PLATELET COUNT 167 /CUMM (130-400); RBC DISTRIBUTION WIDTH 12.9 % (11.5-14.5); RED BLOOD CELL CT 3.97 /CUMM (4.20-5.40); WHITE BLOOD CELL COUNT 7.6 /CUMM (4.8-10.8)
--- NOTE | 2016-04-02 07:16 | PN- Housestaff ---
Subjective Follow-up For: Sick sinus syndrome s/p pacemaker placement Atrial fibrillation Subjective: Patient remains in sinus rhythm with no episodes of arrhythmia. This morning after receiving her scheduled dose of sotalol, she became diaphoretic and hypotensive with SBP down to 76. She was given 500 mL bolus of NS with improvement of her BP to 130/60s. Patient seen and examined this morning. She feels well and has no complaints. Review of Systems Constitutional: Reports: no symptoms. Objective Last 24 Hrs of Vital Signs/I&O Vital Signs Date Time Temp Pulse Resp B/P Pulse O2 O2 Flow FiO2 Ox Delivery Rate 04/02 1600 97.7 60 20 124/70 93 Room Air 04/02 1416 60 128/70 04/02 1156 59 150/70 04/02 1045 59 142/70 04/02 0900 59 142/64 04/02 0830 97.7 60 16 134/62 91 Room Air 04/02 0815 Room Air 04/02 0800 58 76/0 04/02 0730 58 124/70 04/02 0000 91 Room Air 04/01 2341 98.0 59 22 128/74 91 Room Air 04/01 1828 65 130/70 Intake & Output 04/02 1600 04/02 0800 04/02 0000 Intake Total 1300 120 420 Output Total 800 600 950 Balance 500 -480 -530 Intake, IV 500 0 Intake, Oral 800 120 420 Number 1 0 Bowel Movements Output, Urine 800 600 950 Physical Exam General Appearance: Alert, Oriented X3, No Acute Distress HEENT: Mucous Membr. moist/pink Cardiovascular: Regular Rate, Normal S1, Normal S2, No Murmurs, Gallops, Rubs Lungs: Clear to Auscultation Abdomen: Soft, No Tenderness, Positive Bowel Sounds Extremities: No Clubbing, No Cyanosis, No Edema Current Medications: Current Medications Sig/Stella Start time Last Medication Dose Route Stop Time Status Admin Acetaminophen 650 MG .STK-MED ONE 04/02 0002 DC PO 04/02 0003 Acetaminophen 650 MG Q4P PRN 04/01 1615 AC 04/02 PO 0004 Aspirin Buffered 81 MG QPM 04/01 2200 AC 04/01 PO 2155 Calcium/Vitamin D 500 MG DAILY 03/30 1000 AC 04/02 PO 1007 Enoxaparin Sodium 40 MG DAILY 04/01 1644 AC 04/02 SC 1007 Heparin Sodium 5,000 UNIT Q8 04/01 1717 DC (Porcine) SC Levothyroxine Sodium 0.088 MG DAILY AC 03/30 0700 AC 04/02 PO 0559 Lisinopril 40 MG 1900 03/30 1900 AC 04/01 PO 1828 Melatonin 5 MG AT BEDTIME 04/01 2200 AC 04/01 PO 2156 Multivitamins 2 TAB QPM 03/30 2200 AC 04/01 Therapeutic PO 2155 Oxycodone/ 1 TAB Q6P PRN 04/01 1545 AC Acetaminophen PO Oxycodone/ 2 TAB Q6P PRN 04/01 1545 AC Acetaminophen PO Sodium Chloride 500 ML BOLUS ONE 04/02 814 DC 04/02 IV 04/02 0914 0815 Sotalol HCl 80 MG 0730,1930 04/02 1930 AC PO Sotalol HCl 80 MG BID 04/01 1532 DC 04/02 PO 0731 Last 24 Hrs of Lab/Richy Results Last 24 Hrs of Labs/Mics: Laboratory Tests 04/02/16 0434: Anion Gap 7, Estimated GFR > 60, BUN/Creatinine Ratio 24.3, Magnesium 2.0, CBC w Diff NO MAN DIFF REQ, RBC 3.97 L, MCV 92.2, MCH 31.5 H, RDW 12.9, MPV 10.2, Gran % 68.4, Lymphocytes % 21.3, Monocytes % 6.8, Eosinophils % 3.1, Basophils % 0.4, Absolute Granulocytes 5.2, Absolute Lymphocytes 1.6, Absolute Monocytes 0.5 , Absolute Eosinophils 0.2, Absolute Basophils 0, PUBS MCHC 34.2 Orders EKG Findings: 04/02/2016 @ 11:40 AM Atrial-paced rhythm HR 60 QTc 384 Assessment/Plan Assessment: 70 y/o F with PMHx of paroxysmal atrial fibrillation and HTN who is admitted for atrial fibrillation with rapid ventricular response s/p pacemaker placement for sick sinus syndrome with frequent symptomatic bradycardia and pauses. #Sick sinus syndrome/atrial fibrillation : S/p pacemaker placement on 03/31/16 for symptomatic bradycardia and pauses. Remains in sinus rhythm. Started on sotalol 80 mg PO BID yesterday to help maintain sinus rhythm. Episode of hypotension this AM after receiving sotalol. Follow-up EKG with no QTc prolongation (QTc 384). * Cardiology following. Appreciate their recs. * Continue to monitor on telemetry. * Continue aspirin 81 mg PO QD. * Continue sotalol 80 mg PO BID and observe patient overnight in the setting of hypotensive episode this AM. * Anticipated discharge tomorrow with close outpatient follow-up pending clinical stability. #HTN: Takes amlodipine 5 mg PO QD and lisinopril 40 mg PO QD. * Amlodipine stopped to prevent hypotension in the setting of recently initiated sotalol therapy. * Continue dsxrj-cz-mosvixiya lisinopril. Diet: Heart Healthy DVT PPx: Lovenox and ALPs CODE: FULL Problem List: 1. Sick sinus syndrome 2. Paroxysmal atrial fibrillation with rapid ventricular response 3. S/P placement of cardiac pacemaker 4. Hypertension Pain Ratin Pain Location: Surgical site Pain Goal: Remain pain free Pain Plan: Percocet 2 tabs PO Q6H PRN for severe pain (scale 7-10) Percocet 1 tab PO Q6H PRN for moderate pain (scale 4-6) Tylenol 650 mg PO Q4H PRN for mild pain (scale 1-3) Tomorrow's Labs & Rationales: None Discharge Plan Discharge Disposition: home Anticipated Discharge (Day): tomorrow
--- NOTE | 2016-04-02 08:30 | NUR ---
Patient received Sotalol 80 mg PO at 0730, at the time BP 124/70, P 58. At 0800 assisted Patient to BSC by JYOTI Jordan, voided 300ml urine then to chair. Call leroy in reach. At 0810 Patient called for reports feeling cold sweats. Noted Patient to be flushed and diaphoretic. Nurse Network Firewall Engineer, Ed checked BP, via doppler BP 76/doppler. Assisted Patient back to bed. IV established to right wrist by this nurse. Notified Dr Resendiz of BP. At 0815 started NS Bolus of 500 ml. At 0830 repeat manual BP 134/62. Patient reporting feeling better. Per MD continue with NS bolus of 500 ml and will contact cardiology for medication management. Will continue to monitor. Call leroy in reach.
--- NOTE | 2016-04-02 11:17 | PN- Cardiology ---
See Addendum Subjective Subjective: No complaints at this time, but she did become diaphoretic and hypotensive approximately one half hour after receiving her second dosage of sotalol 80 mg this morning. Properly functioning pacemaker on monitoring after implantation on 03/31/2016. Objective Vital Signs and I&Os Vital Signs Date Time Temp Pulse Resp B/P Pulse O2 O2 Flow FiO2 Ox Delivery Rate 04/02 1045 59 142/70 04/02 0900 59 142/64 04/02 0830 97.7 60 16 134/62 91 Room Air 04/02 0815 Room Air 04/02 0800 58 76/0 04/02 0730 58 124/70 04/02 0000 91 Room Air 04/01 2341 98.0 59 22 128/74 91 Room Air 04/01 1828 65 130/70 04/01 1600 93 Room Air 04/01 1600 99.0 72 21 137/67 93 Room Air Room Air 04/01 1200 94 Room Air Intake & Output 04/02 1600 04/02 0800 04/02 0000 04/01 1600 04/01 0800 04/01 0000 Intake Total 120 420 360 600 480 Output Total 300 950 600 300 Balance -180 -530 -240 300 480 Intake, IV 0 0 0 Intake, Oral 120 420 360 600 480 Number 0 0 0 0 Bowel Movements Output, Urine 300 950 600 300 Patient 150 lb Weight Physical Exam: Well-developed, well-nourished elderly female in no acute distress. Vital signs: See above. Lungs: Clear to auscultation bilaterally. Heart: S1, S2 with no murmur, gallop, or rub appreciated. Extremities: No edema. Surgical site: Clean dry dressing. Assessment/Plan Assessment/Plan Mrs. Boyd returned to the ED on 03/29/2016 with her second documented episode of atrial fibrillation with a rapid ventricular response and converted back to sinus rhythm with significant symptomatic bradycardia and pauses. She has sick sinus syndrome and met criteria for the placement of a permanent pacemaker which was successfully performed on 03/31/2016. She was also started on Betapace (sotalol) 80 mg twice daily to help maintain sinus rhythm. A follow-up ECG needs to be performed and will be reviewed to exclude any significant prolongation of her QT or QTc. As she has a [id number] Score of 3, she will maintained on full long-term anticoagulation for her nonvalvular atrial fibrillation. The plan is for discharge to home with close outpatient follow-up. Mrs. Boyd had some questions about the pacemaker and follow-up and these were answered to her satisfaction. Continue telemetry? Yes
--- NOTE | 2016-04-02 11:38 | Patient Discharge Instructions ---
Discharge Instructions General Discharge Information You were seen/treated for: Sick sinus syndrome Atrial fibrillation You had these procedures: Pacemaker placement Watch for these problems: Chest pain Difficulty breathing Irregular or racing heart beat Lightheadedness, dizziness or fainting Fatigue Special Instructions: Please follow up with your primary care physician Dr. Rosenthal and your spinner concrete pipe Dr. Miramontes within one week discharge. Diet Recommended Diet: Heart Healthy Activity Full Activity/No Limits: Yes Acute Coronary Syndrome Inclusion Criteria At DC or during hospital stay patient has or had the following: ACS DIAGNOSIS No Discharge Core Measures Meds if any: Prescribed or Continued at Discharge Meds if any: NOT Prescribed or Continued at Discharge Congestive Heart Failure Inclusion Criteria At DC or during hospital stay patient has or had the following: CHF DIAGNOSIS No Discharge Core Measures Meds if any: Prescribed or Continued at Discharge Meds if any: NOT Prescribed or Continued at Discharge Cerebrovascular accident Inclusion Criteria At DC or during hospital stay patient has or had the following: CVA/TIA Diagnosis No Discharge Core Measures Meds if any: Prescribed or Continued at Discharge Meds if any: NOT Prescribed or Continued at Discharge Venous thromboembolism Inclusion Criteria VTE Diagnosis No VTE Type NONE VTE Confirmed by (Test) NONE Discharge Core Measures - Per Current guidelines, there needs to be overlap - treatment for the first 5 days of Warfarin therapy. - If discharged on Warfarin prior to 5 days of - overlap therapy, the patient will need to be - assessed for post discharge needs including - *Post discharge parental anticoagulation - *Warfarin and/or parental anticoagulation education - *Follow up date to check INR post discharge At least 5 days overlap therapy as Inpatient No Meds if any: Prescribed or Continued at Discharge Note: Overlap Therapy is Warfarin and Anticoagulant Meds if any: NOT Prescribed or Continued at Discharge
[2016-04-02] MEDS ORDERED: SOTALOL80 M1 PO (13:58)
[2016-04-02] MEDS ORDERED: ASPIRIN EC81 M1 PO (13:59)
--- NOTE | 2016-04-02 21:58 | NUR ---
REPORT GIVEN TO SHERI MENON, I WALKED PATIENT, ALL HER BELONGINGS, CHART, AND MEDS OVER TO [facility] ROOM 172 AT 2143, PLACED PATIENT IN BED, APPLIED TELE MONITOR, SHERI ARRIVED TO ROOM; A&OX3, VSS, DENIES PAIN, IV INTACT, LEFT ARM IN SLING, SON AT HER SIDE;
[2016-04-03 00:39] VITALS: BP 142/76
--- NOTE | 2016-04-03 07:00 | PN- Housestaff ---
Subjective Follow-up For: Atrial fibrillation with RVR, new onset Tachy han syndrome with pauses S/P PPM implantation Subjective: Patient seen and examined at bedside this AM. She reports she feels well and is hoping for discharge. Patient is aware that she needs to be monitored on a tow motor operator for 3 days while on sotalol before discharge and is amenable to discharge in the AM. She is aware we will continue sotalol and eliquis after discharge. Review of Systems Constitutional: Denies: chills, fever, malaise. EENTM: Denies: blurred vision, visual changes, hearing changes. Cardiovascular: Denies: chest pain, palpitations. Respiratory: Denies: cough, short of breath. Gastrointestinal: Denies: abdominal pain, bloating, constipation, diarrhea. Genitourinary: Denies: dysuria. Musculoskeletal: Denies: back pain, joint pain. Skin: Denies: dryness. Neurological/Psychological: Denies: confusion, headache. Hematologic/Endocrine: Denies: bruising, bleeding. Immunologic/Allergic: Denies: splenectomy. Objective Last 24 Hrs of Vital Signs/I&O Vital Signs Date Time Temp Pulse Resp B/P Pulse O2 O2 Flow FiO2 Ox Delivery Rate 04/03 0800 97.8 60 16 140/70 92 Room Air 04/03 0039 98.5 60 12 142/76 94 Room Air 04/02 2155 98.0 91 18 132/90 91 04/02 1936 60 132/80 04/02 1600 93 Room Air 04/02 1600 97.7 60 20 124/70 93 Room Air Intake & Output 04/03 1600 04/03 0800 02 0000 Intake Total 480 240 Output Total Balance 480 240 Intake, Oral 480 240 Physical Exam General Appearance: Alert, Cooperative, No Acute Distress Skin: No Rashes, No Significant Lesion, Area around PPM clean without signs of infection. Dry gauze applied over skin. HEENT: Atraumatic, PERRLA, EOMI, Mucous Membr. moist/pink Neck: Supple, No JVD, No thryomegaly Lymphatic: Cervical nl Cardiovascular: Regular Rate, Normal S1, Normal S2 Lungs: Clear to Auscultation, Normal Air Movement Abdomen: Normal Bowel Sounds, Soft, No Tenderness, No Hepatospenomegaly Neurological: Normal Gait, Normal Speech, Strength at 5/5 X4 Ext, Normal Tone, Sensation Intact Extremities: No Clubbing, No Cyanosis, No Edema Vascular: Pulses Symmetrical Current Medications: Current Medications Sig/Stella Start time Last Medication Dose Route Stop Time Status Admin Acetaminophen 650 MG Q4P PRN 04/01 1615 AC 04/02 PO 0004 Apixaban 5 MG BID 04/03 1307 AC PO Aspirin Buffered 81 MG QPM 04/01 2200 AC 04/02 PO 2120 Calcium/Vitamin D 500 MG DAILY 03/30 1000 AC 04/03 PO 0830 Enoxaparin Sodium 40 MG DAILY 04/01 1644 DC 04/03 SC 0830 Levothyroxine Sodium 0.088 MG DAILY AC 03/30 0700 AC 04/03 PO 0618 Lisinopril 40 MG 1900 03/30 1900 AC 04/02 PO 1936 Melatonin 5 MG AT BEDTIME 04/01 2200 AC 04/02 PO 2120 Multivitamins 2 TAB QPM 03/30 2200 AC 04/02 Therapeutic PO 2119 Oxycodone/ 1 TAB Q6P PRN 04/01 1545 AC Acetaminophen PO Oxycodone/ 2 TAB Q6P PRN 04/01 1545 AC Acetaminophen PO Sotalol HCl 80 MG 0730,1930 04/02 1930 AC 04/03 PO 0829 Orders ECHO Findings: CONCLUSIONS Normal size left ventricle. Borderline to mild concentricleft ventricular hypertrophy. Normal left ventricular ejection fraction visually estimated at > 65%. Normal left ventricular diastolic filling pattern for age. Normal right ventricular size and function. Normal right atrial size. Left atrial size at the upper limits of normal. Mild mitral regurgitation. Mild tricuspid regurgitation. Mild pulmonary hypertension. Radiology Findings: CXR: IMPRESSION: 1. Placement of pacemaker in good position with leads in right atrium and right ventricle. 2. New focal infiltrate in left upper lobe. Assessment/Plan Assessment: Ms. Boyd is a pleasant 70 year old female with PMHx of paroxysmal atrial fibrillation, hjypothyroidism and HTN who was admitted for atrial fibrillation with rapid ventricular response s/p pacemaker placement on 03/31/16 for sick sinus syndrome with frequent symptomatic bradycardia and pauses. Patient is currently admitted to the telemetry unit and the following is the management: #Sick sinus syndrome/atrial fibrillation : S/p pacemaker placement on 03/31/16 for symptomatic bradycardia and pauses. Remains in sinus rhythm. Started on sotalol 80 mg PO BID to help maintain sinus rhythm. Episode of hypotension yesterday AM after receiving sotalol. Follow-up EKG with no QTc prolongation ( QTc 384). * Cardiology following. Appreciate their recs. * Continue to monitor on telemetry. * Continue aspirin 81 mg PO QD. * Continue sotalol 80 mg PO BID and observe patient for one more night to monitor the QTC. If normal on EKG, will discharge in AM. * We have started patient on 5 mg eliquis BID (after confirming that this can be restarted with Dr. Hernandez) and will continue this medication as an outpatient #HTN: Takes amlodipine 5 mg PO QD and lisinopril 40 mg PO QD. * Amlodipine stopped to prevent hypotension in the setting of recently initiated sotalol therapy. * Continue ifzhq-xh-wrvbhisiq lisinopril. Diet: Heart Healthy DVT PPx: Lovenox and ALPs CODE: FULL Problem List: 1. Hypothyroidism 2. Paroxysmal atrial fibrillation with rapid ventricular response 3. Tachy-han syndrome 4. Hypertension Pain Ratin Pain Location: n/a Pain Goal: Remain pain free Pain Plan: Mild pain pathway Tomorrow's Labs & Rationales: None.
[2016-04-03 08:00] VITALS: BP 140/70
--- NOTE | 2016-04-03 08:01 | Discharge Summary ---
Visit Information Visit Dates Admission Date: 03/29/16 Discharge Date: 04/04/16 Hospital Course Course Attending Physician: PB BENITEZ MD Primary Care Physician: ANGELLA ROSENTHAL MD Hospital Course: Ms. Boyd is a 70 y/o F with PMHx of paroxysmal atrial fibrillation and HTN, admitted to a month ago (02/27/16-02/28/16), diagnosed with new- onset atrial fibrillation at that time which converted with IV diltiazem drip and discharged without any anticoagulation or antiarrhythmic therapy given the brief duration of the episode, who presented with her second documented episode of atrial fibrillation. Below are the issues that were addressed during current admission: #Sick sinus syndrome with paroxysmal atrial fibrillation: On admission, patient was in atrial fibrillation with rapid ventricular response. She was started on IV diltiazem drip for rate control and Eliquis for anti-coagulation. However she was noted to have frequent sinus pauses up to 5 seconds while on the IV diltiazem drip, which was discontinued with subsequent conversion to sinus rhythm. ECHO was performed which showed normal LVEF estimated at 65% and no significant valvular disease. Patient continued to have symptomatic bradycardia and pauses while in sinus rhythm associated with chest tightness, palpitations and lightheadedness. Patient met the criteria for permanent pacemaker placement in the setting of sick sinus syndrome, which was successfully performed (03/31/16 ). Eliquis was discontinued prior to procedure and patient was treated with IV heparin leading up to the procedure. After pacemaker placement, patient was started on sotalol 80 mg PO BID to help maintain sinus rhythm and she remained in sinus rhythm with demand pacing. As she has a [id number] score of 3, it was felt that that she would benefit from long-term anticoagulation and was started on Eliquis 5 mg PO BID. * Patient will continue taking Eliquis 5 mg PO BID and sotalol 80 mg PO BID on discharge. #HTN: Patient had an episode of hypotension after starting sotalol. Amlodipine was discontinued to prevent hypotension in the setting of recently initiated beta-keli therapy and patient remained normotensive without further episodes of hypotension. * Patient will discontinue amlodipine on discharge. Allergies: Coded Allergies: NO KNOWN ALLERGIES (03/02/16) Significant Procedures: Dual chamber permanent pacemaker placement (03/31/16) Disposition Summary Disposition Principal Diagnosis: Sick sinus syndrome with paroxysmal atrial fibrillation Additional Diagnosis: N/A Discharge Disposition: home or self care Discharge Instructions General Discharge Information Code Status: Full Code Patient's Diet: Heart Healthy Patient's Activity: Full Activity/No Limits Follow-Up Instructions/Appts: Please follow up with your primary care physician Dr. Rosenthal and your floor layer apprentice Dr. Benitez within one week discharge. Medications at Discharge Discharge Medications: Stop taking the following medications: Amlodipine Besylate (Norvasc) 5 MG TABLET ORAL DAILY Continue taking these medications: Lisinopril (Lisinopril) 40 MG TABLET 1 Tablet ORAL DAILY Comments: GIVEN 04/03/16 @ 5:30 PM Levothyroxine Sodium (Levothyroxine Sodium) 88 MCG TABLET 1 Tablet ORAL DAILY BEFORE BREAKFAST Comments: GIVEN 04/04/16 @ 6:20 AM Glucosa Kelley 2KCL/Chondroitin Kelley (Glucosamine & Chondroitin Cap) (Unknown Strength ) CAPSULE 2 Capsule ORAL Every night Comments: NOT GIVEN Magnesium Citrate (Magnesium Citrate) 100 MG TABLET 800 Milligram ORAL Every night Comments: NOT GIVEN Cholecalciferol (Vitamin D3) (Vitamin D3) 2,000 UNIT TABLET 1 Tablet ORAL Every night Comments: NOT GIVEN Calcium Carbonate/Vitamin D3 (Calcium 600 + Vit D Tablet) (Unknown Strength) TABLET 2 Tablet ORAL Every night Comments: GIVEN 04/04/16 @ 10:50 AM Bacillus Coagulans/Inulin (Probiotic Formula Capsule) (Unknown Strength) CAPSULE Unknown Dose ORAL Every night Comments: NOT GIVEN Krill Oil (Krill Oil) (Unknown Strength) CAPSULE Unknown Dose ORAL Every night Comments: NOT GIVEN Multivitamin (Multiple Vitamins) 1 EACH TABLET 2 Tablet ORAL Every night Comments: GIVEN 04/04/16 AT 8 PM Estradiol (Estring) 7.5 MCG/24 HOUR VAG.RING 1 Each VAGINAL Every 3 months Comments: NOT GIVEN Turmeric Root Extract (Turmeric) (Unknown Strength) CAPSULE Unknown Dose ORAL Every night Comments: NOT GIVEN Aspirin (Ecotrin*) 81 MG TABLET.DR 1 Tablet ORAL Every night Qty = 30 Comments: GIVEN 04/03/16 @ 8PM This prescription has been renewed Start taking the following new medications: Sotalol HCl (Sotalol) 80 MG TABLET 1 Tablet ORAL TWICE DAILY Qty = 60 No Refills Comments: GIVEN 04/04/16 @ 8:30 AM Apixaban (Eliquis) 5 MG TABLET 1 Tablet ORAL TWICE DAILY Qty = 60 No Refills Comments: GIVEN 04/04/16 @ 8:30 AM Copies To: NEIL BENÍTEZ,ANGELLA [place]
--- NOTE | 2016-04-03 10:13 | Proc Note Cardiology ---
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 A permanent pacemaker was recommended for tachy -han syndrome. Procedure: This patient was prepped and draped in the usual sterile fashion after having obtained informed consent. She was administered 2 gm of Ancef as prophylaxis against infection. An incision was then made in the left subclavicular space where a pacemaker pocket was dissected out. Access was obtained in through the left subclavian vein via the Seldinger techinique and a 7F sheath was placed in the vein. Two wires were placed and the sheath then removed and placed over a single wire with retention of the remaining wire for later use. The right ventricular lead was then placed in the right ventricular apex and pacing parameters were checked and confirmed to be good. We then removed the sheath and placed a second 7F sheath in the left subclavian vein and through this passed the lead to the right atrial appendage. Pacing parameters were again checked and confirmed to be within acceptable, or better, limits. The sheath was removed and the leads were sewn into place and the pacemaker was then placed in the pocket after attaching both leads. The pacemaker pocket was sutured closed with three layers of absorbable suture. The pacemaker was again tested and the patient was brought to recovery where a chest X-ray and 12 lead ECG were obtained. Pacemaker: Medtronic Advisa MRI safe Pacemaker Model # [id number] with serial # [id number] Atrial Lead: Model # 5076-52 Serial # [id number] Voltage: 0.7V Current: 1.5 mA Impedance: 521 Ohms P wave: 2.0 mV Ventricular Lead: Model # 5076-58 Serial # [id number] Voltage: 0.5V Current: 0.5 mA Impedance: 961 Ohms R wave: 7.4mV The patient tolerated this procedure well without complications.
--- NOTE | 2016-04-03 13:09 | PN- Cardiology ---
Subjective Subjective: No complaints. Telemetry reveals normal sinus rhythm alternating with proper pacemaker function with atrial pacing and ventricular sensing. Objective Vital Signs and I&Os Vital Signs Date Time Temp Pulse Resp B/P Pulse O2 O2 Flow FiO2 Ox Delivery Rate 04/03 0800 97.8 60 16 140/70 92 Room Air 04/03 0039 98.5 60 12 142/76 94 Room Air 04/02 2155 98.0 91 18 132/90 91 04/02 1936 60 132/80 04/02 1600 93 Room Air 04/02 1600 97.7 60 20 124/70 93 Room Air 04/02 1416 60 128/70 Intake & Output 04/03 1600 04/03 0800 04/03 0000 04/02 1600 04/02 0800 04/02 0000 Intake Total 240 1300 120 420 Output Total 800 600 950 Balance 240 500 -480 -530 Intake, IV 500 0 Intake, Oral 240 800 120 420 Number 1 0 Bowel Movements Output, Urine 800 600 950 Physical Exam: Well-developed, well-nourished elderly female in no acute distress. Vital signs: See above. Lungs: Clear to auscultation bilaterally. Heart: S1, S2 with no murmur, gallop, or rub appreciated. Abdomen: Soft, nontender, positive bowel sounds. Extremities: No edema. Surgical site: Clean dry dressing. Current Medications: Current Medications Sig/Stella Start time Last Medication Dose Route Stop Time Status Admin Acetaminophen 650 MG Q4P PRN 04/01 1615 AC 04/02 PO 0004 Apixaban 5 MG BID 04/03 1307 UNVr PO Aspirin Buffered 81 MG QPM 04/01 220 AC 04/02 PO 2120 Calcium/Vitamin D 500 MG DAILY 03/30 1000 AC 04/03 PO 0830 Enoxaparin Sodium 40 MG DAILY 04/01 1644 AC 04/03 SC 0830 Levothyroxine Sodium 0.088 MG DAILY AC 03/30 0700 AC 04/03 PO 0618 Lisinopril 40 MG 1900 03/30 1900 AC 04/02 PO 1936 Melatonin 5 MG AT BEDTIME 04/01 2200 AC 04/02 PO 2120 Multivitamins 2 TAB QPM 03/30 2200 AC 04/02 Therapeutic PO 2119 Oxycodone/ 1 TAB Q6P PRN 04/01 1545 AC Acetaminophen PO Oxycodone/ 2 TAB Q6P PRN 04/01 1545 AC Acetaminophen PO Sotalol HCl 80 MG 0730,1930 04/02 1930 AC 04/03 PO 0829 Sotalol HCl 80 MG BID 04/01 1532 DC 04/02 PO 0731 Results Last 48 Hrs of Labs/Mics: Laboratory Tests 04/02/16 0434: Anion Gap 7, Estimated GFR > 60, BUN/Creatinine Ratio 24.3, Magnesium 2.0, CBC w Diff NO MAN DIFF REQ, RBC 3.97 L, MCV 92.2, MCH 31.5 H, RDW 12.9, MPV 10.2, Gran % 68.4, Lymphocytes % 21.3, Monocytes % 6.8, Eosinophils % 3.1, Basophils % 0.4, Absolute Granulocytes 5.2, Absolute Lymphocytes 1.6, Absolute Monocytes 0.5 , Absolute Eosinophils 0.2, Absolute Basophils 0, PUBS MCHC 34.2 Assessment/Plan Assessment/Plan Mrs. Boyd returned to the ED on 03/29/2016 with her second documented episode of atrial fibrillation with a rapid ventricular response and converted back to sinus rhythm with significant symptomatic bradycardia and pauses. She has sick sinus syndrome and met criteria for the placement of a permanent pacemaker which was successfully performed on 03/31/2016. She was also started on Betapace AF (sotalol) 80 mg twice daily to help maintain sinus rhythm. It is recommended that an individual placed on Betapace AF be maintained on telemetry for a minimum of 3 days to exclude significant prolongation of the QT interval or proarrhythmia. A follow-up ECG was performed on 04/02/2016 and did not reveal any significant prolongation of her QT or QTc. As she has a [id number] Score of 3, she will maintained on full long-term anticoagulation for her nonvalvular atrial fibrillation for at least the short term. The plan is for discharge to home with close outpatient follow-up tomorrow morning. Mrs. Boyd had some questions about the pacemaker and follow-up and these were answered to her satisfaction. Continue telemetry? Yes
[2016-04-03] MEDS ORDERED: ELIQUIS5 M1 PO (15:01)
[2016-04-03 16:33] VITALS: BP 164/88
[2016-04-03 23:00] VITALS: BP 144/80
--- NOTE | 2016-04-04 07:00 | PN- Housestaff ---
Subjective Follow-up For: Atrial fibrillation, new onset Tachy-han syndrome Subjective: Patient seen and examined at bedside this AM. She is resting comfortably in bed without complaint and feels stable for discharge today. Patient denies chest pain, palpitations or the general feeling of being unwell. Review of Systems Constitutional: Denies: chills, fever. EENTM: Denies: blurred vision, nasal congestion. Cardiovascular: Denies: chest pain, palpitations, syncope. Respiratory: Denies: cough, short of breath. Gastrointestinal: Denies: abdominal pain, constipation. Genitourinary: Denies: dysuria. Musculoskeletal: Denies: back pain. Skin: Denies: dryness. Neurological/Psychological: Denies: confusion, headache. Hematologic/Endocrine: Denies: bruising, bleeding. Objective Last 24 Hrs of Vital Signs/I&O Vital Signs Date Time Temp Pulse Resp B/P Pulse O2 O2 Flow FiO2 Ox Delivery Rate 04/04 0802 97.6 61 16 140/80 94 Room Air 04/03 2300 97.4 68 18 144/80 97 Room Air 04/03 1730 61 164/88 04/03 1633 97.6 61 16 164/88 94 Room Air Intake & Output 04/04 1600 04/04 0800 04/04 0000 Intake Total 300 650 Output Total Balance 300 650 Intake, IV 0 0 Intake, Oral 300 650 Number 0 0 Bowel Movements Physical Exam General Appearance: Alert, Oriented X3, Cooperative, No Acute Distress Skin: No Rashes, No Significant Lesion HEENT: Atraumatic, Mucous Membr. moist/pink Neck: +2 Carotid Pulse wo Bruit Lymphatic: Cervical nl Cardiovascular: Regular Rate, Normal S1, Normal S2, No Murmurs Lungs: Normal Air Movement Abdomen: Normal Bowel Sounds, Soft, No Tenderness, No Hepatospenomegaly Neurological: Normal Gait, Normal Speech, Normal Tone Extremities: No Clubbing, No Cyanosis, No Edema Vascular: Pulses Symmetrical Current Medications: Current Medications Sig/Stella Start time Last Medication Dose Route Stop Time Status Admin Acetaminophen 650 MG Q4P PRN 04/01 1615 AC 04/02 PO 0004 Apixaban 5 MG BID 04/03 1307 AC 04/04 PO 0834 Aspirin Buffered 81 MG QPM 04/01 2200 AC 04/03 PO 2006 Calcium/Vitamin D 500 MG DAILY 03/30 1000 AC 02/17 PO 1052 Enoxaparin Sodium 40 MG DAILY 04/01 1644 DC 04/03 SC 0830 Levothyroxine Sodium 0.088 MG DAILY AC 03/30 0700 AC 04/04 PO 0621 Lisinopril 40 MG 1900 03/30 1900 AC 04/03 PO 1730 Melatonin 5 MG AT BEDTIME 04/01 2200 AC 04/03 PO 2006 Multivitamins 2 TAB QPM 03/30 2200 AC 04/03 Therapeutic PO 2006 Oxycodone/ 1 TAB Q6P PRN 04/01 1545 AC Acetaminophen PO Oxycodone/ 2 TAB Q6P PRN 04/01 1545 AC Acetaminophen PO Sotalol HCl 80 MG 0730,1930 04/02 1930 AC 04/04 PO 0833 Orders ECHO Findings: CONCLUSIONS Normal size left ventricle. Borderline to mild concentricleft ventricular hypertrophy. Normal left ventricular ejection fraction visually estimated at > 65%. Normal left ventricular diastolic filling pattern for age. Normal right ventricular size and function. Normal right atrial size. Left atrial size at the upper limits of normal. Mild mitral regurgitation. Mild tricuspid regurgitation. Mild pulmonary hypertension. Radiology Findings: CLINICAL INFORMATION: Post PPM placement COMPARISON: Chest x-ray 03/02/2016 TECHNIQUE: Portable AP portable view of the chest was obtained. 5:47 PM FINDINGS: Dual-lead pacemaker present with a lead in right atrium and right ventricle. There is a focal parenchymal infiltrate in the left upper lobe at the left lung apex that is new since prior chest x-ray. The right lung is clear. No significant pulmonary vascular congestion. No pleural effusion. No pneumothorax. IMPRESSION: 1. Placement of pacemaker in good position with leads in right atrium and right ventricle. 2. New focal infiltrate in left upper lobe. Assessment/Plan Assessment: Ms. Boyd is a pleasant 70 year old female with PMHx of paroxysmal atrial fibrillation, hjypothyroidism and HTN who was admitted for atrial fibrillation with rapid ventricular response s/p pacemaker placement on 03/31/16 for sick sinus syndrome with frequent symptomatic bradycardia and pauses. Patient is currently admitted to the telemetry unit and the following is the management: #Sick sinus syndrome/atrial fibrillation : S/p pacemaker placement on 03/31/16 for symptomatic bradycardia and pauses. Remains in sinus rhythm. Started on sotalol 80 mg PO BID to help maintain sinus rhythm. Episode of hypotension yesterday AM after receiving sotalol. Follow-up EKG with no QTc prolongation ( QTc 384). * Continue to monitor on telemetry. * Continue aspirin 81 mg PO QD. * QTC WNL (409) and patient stable for discharge on 80 mg sotalol BID. * Continue eliquis 5 mg PO BID * F/U with Dr. Miramontes within 1 week after discharge for continued care #HTN: Takes amlodipine 5 mg PO QD and lisinopril 40 mg PO QD. * Amlodipine stopped to prevent hypotension in the setting of recently initiated sotalol therapy. * Continue [id number] lisinopril. Diet: Heart Healthy DVT PPx: Lovenox and ALPs CODE: FULL Problem List: 1. Intermittent palpitations 2. Hypothyroid 3. Hypertension 4. Atrial fibrillation 5. Tachy-han syndrome Pain Ratin Pain Location: n/a Pain Goal: Remain pain free Pain Plan: Mild pain pathway. Tomorrow's Labs & Rationales: None, discharge today. None, discharge today.
[2016-04-04 08:02] VITALS: BP 140/80
== END 2016-04-04 14:20 | DRG 244 ==
LOC: ENRESERVTM → ENRESERVDT → ERH 15:22 → ERHI 17:26 → EDBEDREQ 18:17 → 1NO 19:38 → CRI 22:06 → 1NO 22:06 → CRI 22:45 → 1NO 04-02 21:53
PROVIDERS: Dermatology; Emergency Medicine; Physician Assistant; Student in an Organized Health Care Education/Training Program; ADMIT Internal Medicine Cardiovascular Disease
PROC: 02HK3JZ Insertion of Pacemaker Lead into Right Ventricle, Percutaneous Approach (ICD-10-PCS; principal; 2016-03-31)
PROC: 02H63JZ Insertion of Pacemaker Lead into Right Atrium, Percutaneous Approach (ICD-10-PCS; principal; 2016-03-31)
PROC: 0JH606Z Insertion of Pacemaker, Dual Chamber into Chest Subcutaneous Tissue and Fascia, Open Approach (ICD-10-PCS; principal; 2016-03-31)
DX: I49.5 Sick sinus syndrome (principal); I48.0 Paroxysmal atrial fibrillation; I10 Essential (primary) hypertension; E03.9 Hypothyroidism, unspecified
CPT/HCPCS: 1NP; CCU; 36415; 81001; 82436; 87070; 93005; 93010; 93306; 96374; 96376; 99291; C1785; C1898; J0131; J0694; J1644; J1650; J7040